=== PATIENT | female | born 1945 | race Asian ===

== ENCOUNTER 2018-07-04 22:41 | Inpatient (IN) | payer MEDICARE, MEDICAID ==
[~2018-07-04] VITALS: Ht 160 cm; Wt 65.8 kg
--- NOTE | 2018-07-04 23:00 | NUR ---
PT BIBPA C/O "NEEDS MED CLEARANCE BEFORE ADMIT TO [facility]". -SOB -N/V AOX4. PT ON MONITOR IN BED 10. WILL CONTINUE TO MONITOR.
--- NOTE | 2018-07-04 23:05 | NUR ---
PHLEB AT BEDSIDE FOR LAB DRAW
--- NOTE | 2018-07-04 23:15 | NUR ---
PT MOVED TO BED 12
[2018-07-04 23:20] LABS: BASOPHILS # (AUTO) 0.1 /CMM (0.0-0.2); BASOPHILS % (AUTO) 0.8 % (0.0-2.0); HEMATOCRIT 41 % (33-45); HEMOGLOBIN 13.9 g/dL (11.5-14.8); LYMPHOCYTES % (AUTO) 44.5 % (20.0-44.0); MEAN CORPUSCULAR HGB CONC 34 g/dl (31.0-36.0); MEAN CORPUSCULAR VOLUME 93 fL (82-100); MONOCYTES # (AUTO) 0.6 /CMM (0.1-1.30); MONOCYTES % (AUTO) 7.1 % (2.0-12.0); NEUTROPHILS # (AUTO) 4.2 /CMM (1.8-8.9); NEUTROPHILS % (AUTO) 46.6 % (43.0-81.0); PLATELET COUNT (AUTO) 438 /CMM (150-450); RED BLOOD CELL COUNT(AUTO) 4.43 MIL/uL (4.0-5.2); WHITE BLOOD COUNT (AUTO) 8.9 K/uL (4.3-11.0)
[2018-07-04 23:24] LABS: CALCIUM, SERUM 8.9 mg/dL (8.5-10.1); CARBON DIOXIDE 30 mmol/L (21-32); CHLORIDE 103 mmol/L (98-107); CREATININE 0.9 mg/dL (0.6-1.3); GLUCOSE 92 mg/dL (74-106); SODIUM SERUM 138 mmol/L (136-145); UREA NITROGEN, BLOOD 14 mg/dL (7-18)
[2018-07-04 23:30] LABS: ALANINE AMINOTRANSFERASE 26 U/L (12-78); ALBUMIN 3.7 g/dL (3.4-5.0); ALKALINE PHOSPHATASE 83 U/L (46-116); ASPARTATE AMINOTRANSFERASE 18 U/L (15-37); BILIRUBIN,DIRECT 0.1 mg/dL (0.0-0.2); BILIRUBIN,TOTAL 0.4 mg/dL (0.2-1.0); SALICYLATE 5.2 mg/dL (2.8-20.0); TOTAL PROTEIN, SERUM 7.3 g/dL (6.4-8.2)
[2018-07-04 23:33] LABS: ACETAMINOPHEN 0 ug/ml (10-30); ALCOHOL, BLOOD < 3 mg/dL (0-0)
--- NOTE | 2018-07-04 23:52 | NUR ---
BED ASSIGNMENT 211-1
--- NOTE | 2018-07-04 23:57 | NUR ---
REPORT GIVEN TO GREGORY AYALA FOR AMINAH
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
[2018-07-05] MEDS ORDERED: ACETAMINOPHEN 325 MG TABLET PO PRN (01:00)
[2018-07-05] MEDS ORDERED: MAG HYDROX/AL HYDROX/SIMETH 30 ML UDC PO PRN (01:00)
[2018-07-05] MEDS ORDERED: MAGNESIUM HYDROXIDE 30 ML UDC PO PRN (01:00)
[2018-07-05] MEDS ORDERED: ARIP10TA9 PO (05:15)
[2018-07-05] MEDS ORDERED: DIVA250T47 PO (05:15)
[2018-07-05] MEDS ORDERED: OLAN10TA3 PO (05:15)
[2018-07-05] MEDS ORDERED: IBUP-1953 PO (05:15)
[2018-07-05] MEDS ORDERED: DOCU100C36 PO (05:15)
[2018-07-05] MEDS ORDERED: OLANZAPINE ODT (05:15)
[2018-07-05] MEDS ORDERED: OLAN15TA3 PO (05:15)
[2018-07-05] MEDS ORDERED: AMOX500C2 PO (05:15)
[2018-07-05] MEDS ORDERED: ARIP300S3 IM (05:15)
--- NOTE | 2018-07-05 06:39 | NUR ---
MRSA SCREEN DONE IN ER
--- NOTE | 2018-07-05 06:39 | NUR ---
RELATIVE ALVERTO LI, WAS CALLED, NO ANSWER, MESSAGE LEFT VIA VOICE MAIL. RE: PATIENT'S ADMISSION TO GPS UNIT.
[2018-07-05] MEDS ORDERED: DOCU250C14 PO (08:21)
[2018-07-05] MEDS ORDERED: ARIP2TAB11 PO (08:21)
--- NOTE | 2018-07-05 10:53 | NUR ---
AYSHA contacted pts friend Heather [phone] who stated he lives with pt and wishes for her to return home. Heather stated he will pick pt up and transport home.
--- NOTE | 2018-07-05 11:10 | NUR ---
INITIAL DISCHARGE PLAN: Patient wishes to return home to [address] [facility] [address]. AYSHA will help form a safe and proper discharge in collaboration with friend Heather [phone] and .
[2018-07-05 16:00] VITALS: BP 151/64
[2018-07-05] MEDS: OLANZAPINE 5 MG/TAB.RAPDIS PO SCH (16:27)
[2018-07-05] MEDS ORDERED: IBUPROFEN 600 MG TABLET PO PRN (17:30)
[2018-07-05] MEDS ORDERED: DOCUSATE SODIUM 250 MG CAPSULE PO PRN (17:30)
--- NOTE | 2018-07-05 17:48 | NUR ---
GPS/RN-NOTES PATO DOVE SEEN THE PATIENT AND WILL RECONCILE PT'S. MEDICATIONS.
--- NOTE | 2018-07-05 19:30 | NUR ---
GPS RN NOTE, RECEIVED PATIENT AWAKE AND IN ROOM NO S/S OR COMPLAINTS OF PAIN AT THIS TIME. PATIENT IS DISPLAYING NO S/S OF APPARENT DISTRESS AT THIS TIME. PATIENT BREATHING IS UNLABORED WITH EQUAL RISE AND FALL OF THE CHEST. PATIENT IS ALERT AND ORIENTED X 1-2 ON ROOM AIR WITH A SPO2 OF 97%. PATIENT IS MED COMPLIANT, DISORGANIZED, DEPRESSED, COOPERATIVE, AND NEEDS REORIENTATION. PATIENT DENIES SUICIDE AND HOMICIDAL IDEATIONS AT THIS TIME. PATIENT ASSISTED WITH TURNING AND REPOSITIONING Q2HR AND PRN FOR COMFORT AND CIRCULATION. PATIENT HAS NO NEEDS AT THIS TIME. PATIENT EDUCATED ON THE USE OF THE CALL ARIAS. PATIENT BED SIDE RAILS ARE UP X 2 FOR SAFETY, BED IS LOCKED AND LOW. WILL CONTINUE TO MONITOR AND MAINTAIN SAFETY Q15 MIN WITH THE HELP OF STAFF.
[2018-07-05 20:00] VITALS: BP 137/90
[2018-07-05] MEDS: DIVALPROEX SODIUM 250 MG TABLET.DR PO SCH (21:25)
[2018-07-06] MEDS: ZOLPIDEM TARTRATE 5 MG TABLET PO PRN (01:05)
--- NOTE | 2018-07-06 01:05 | NUR ---
GPS RN NOTE, PATIENT HAS A COMPLAINT OF NOT BEING ABLE TO SLEEP AND IS REQUESTING AMBIEN AT THIS TIME. PATIENT VITAL SIGNS ARE STABLE. GAVE AMBIEN 5MG PO HS PRN ORDERED. WILL REASSESS FOR INSOMNIA AND I WILL CONTINUE TO MONITOR THIS PATIENT.
[2018-07-06] MEDS: DIVALPROEX SODIUM 250 MG TABLET.DR PO SCH ×2 (08:09→21:20)
[2018-07-06] MEDS: OLANZAPINE 5 MG/TAB.RAPDIS PO SCH ×2 (08:09→16:39)
--- NOTE | 2018-07-06 15:19 | NUR ---
SUPPORTIVE COUNSELING: SW SPOKE WITH PT REGARDING HER DISCHARGE AND COOPERATION WITH TREATMENT. PT IS CONFUSED AND DISORIENTED. PT WAS OBSERVED ATTEMPTING TO DEFECATE IN THE ACTIVITY ROOM.
--- NOTE | 2018-07-06 18:49 | NUR ---
RN NOTE: PATIENT REMAINS ALERT AWAKE ORIENTED. ON ROOM AIR, NO BREATHING DISTRESS NOTED. DENIES PAIN/DISCOMFORT. DENIES SI/HI. NO FALL/INJURY NOTED. SAFETY MEASURES OBSERVED. ENCOURAGE TO USE CALL LIGHT FOR ASSISTANCE. CONTINUE WITH PLAN OF CARE. NO NON-COMPLIANT BEHAVIOR NOTED, EASILY RE-ORIENTED.
[2018-07-06] MEDS: LORAZEPAM 0.5 MG TABLET PO PRN (23:07)
--- NOTE | 2018-07-07 06:00 | NUR ---
GPS RN NOTES : COLLECT URINE SPECIMEN, AND SEND OUT TO LAB.
[2018-07-07 06:27] LABS: BASOPHILS # (AUTO) 0.1 /CMM (0.0-0.2); BASOPHILS % (AUTO) 1.1 % (0.0-2.0); EOSINOPHILS % (AUTO) 1.2 % (0.0-6.0); HEMATOCRIT 41 % (33-45); HEMOGLOBIN 13.8 g/dL (11.5-14.8); LYMPHOCYTES # (AUTO) 3.2 /CMM (0.8-4.8); LYMPHOCYTES % (AUTO) 49.5 % (20.0-44.0); MEAN CORPUSCULAR HGB CONC 34 g/dl (31.0-36.0); MEAN CORPUSCULAR VOLUME 92 fL (82-100); MONOCYTES # (AUTO) 0.5 /CMM (0.1-1.30); MONOCYTES % (AUTO) 7.3 % (2.0-12.0); NEUTROPHILS # (AUTO) 2.7 /CMM (1.8-8.9); NEUTROPHILS % (AUTO) 40.9 % (43.0-81.0); PLATELET COUNT (AUTO) 448 /CMM (150-450); RED BLOOD CELL COUNT(AUTO) 4.45 MIL/uL (4.0-5.2); WHITE BLOOD COUNT (AUTO) 6.5 K/uL (4.3-11.0)
[2018-07-07 06:32] LABS: ALBUMIN 3.5 g/dL (3.4-5.0); BILIRUBIN,TOTAL 0.7 mg/dL (0.2-1.0); CREATININE 0.7 mg/dL (0.6-1.3); POTASSIUM 3.7 mmol/L (3.5-5.1); TOTAL PROTEIN, SERUM 7.4 g/dL (6.4-8.2)
[2018-07-07 06:46] LABS: APPEARANCE,URINE CLEAR (CLEAR); BILIRUBIN,URINE NEGATIVE (NEGATIVE); BLOOD, URINE TRACE Ery/uL (NEGATIVE); COLOR,URINE YELLOW (YELLOW); KETONES,URINE NEGATIVE (NEGATIVE); LEUKOCYTE ESTERASE ,URINE NEGATIVE (NEGATIVE); NITRITE, URINE NEGATIVE (NEGATIVE); PROTEIN,URINE NEGATIVE (NEGATIVE); UGLUCOSE NEGATIVE (NEGATIVE); UROBILINOGEN,URINE 0.2 EU/dL (0.2)
[2018-07-07 07:34] LABS: BACTERIA,URINE Rare /HPF (None Seen); SQUAMOUS EPITHELIAL CELL,UR Rare /HPF (None Seen); WBC,URINE 0-2 /HPF (0-3)
[2018-07-07 07:36] LABS: YEAST,URINE Rare /HPF (None Seen)
[2018-07-07 07:37] LABS: RBC,URINE 0-3 /HPF (0-2)
[2018-07-07 08:00] VITALS: BP 131/92
[2018-07-07] MEDS: OLANZAPINE 5 MG/TAB.RAPDIS PO SCH ×3 (09:00→17:00)
[2018-07-07] MEDS: DIVALPROEX SODIUM 250 MG TABLET.DR PO SCH ×3 (09:00→20:47)
--- NOTE | 2018-07-07 09:44 | NUR ---
GPS/RN PT REFUSED TO TAKE MEDICATION FROM THE SUPERINTENDENT GREENS OF THE NOTE AND FROM AMRIK JENKINS WELL. OFFERED X3.
[2018-07-07 16:00] VITALS: BP 119/76
[2018-07-07 20:00] VITALS: BP 144/90
[2018-07-07] MEDS: LORAZEPAM 0.5 MG TABLET PO PRN (21:06)
[2018-07-08 08:00] VITALS: BP 116/59
[2018-07-08] MEDS: DIVALPROEX SODIUM 250 MG TABLET.DR PO SCH ×2 (08:29→20:38)
[2018-07-08] MEDS: OLANZAPINE 5 MG/TAB.RAPDIS PO SCH ×2 (08:29→16:33)
[2018-07-08 16:00] VITALS: BP 134/99
[2018-07-08 20:00] VITALS: BP 110/74
[2018-07-09 08:00] VITALS: BP 145/70
[2018-07-09] MEDS: OLANZAPINE 5 MG/TAB.RAPDIS PO SCH ×2 (08:52→17:11)
[2018-07-09] MEDS: DIVALPROEX SODIUM 250 MG TABLET.DR PO SCH ×3 (08:52→17:11)
--- NOTE | 2018-07-09 16:14 | NUR ---
AYSHA received a call from pts friend Heather [phone] asking when pt will be discharged. SW explained that psychiatrist has not given order yet as pt is not stable. SW informed him that she would call him once psychiatrist gives DC order. Friend understood.
[2018-07-09 16:26] VITALS: BP 147/84
[2018-07-09 19:50] VITALS: BP 127/67
[2018-07-09 20:00] VITALS: BP 127/67
[2018-07-09] MEDS: ZOLPIDEM TARTRATE 5 MG TABLET PO PRN (20:56)
--- NOTE | 2018-07-09 20:56 | NUR ---
rn gps notes patient requesting for sleep aide. ambien offered patient states "YES SLEEP MEDICINE" prn ambien given will continue to monitor for effectiveness.
[2018-07-10 08:00] VITALS: BP 131/77
[2018-07-10] MEDS: OLANZAPINE 5 MG/TAB.RAPDIS PO SCH ×2 (08:53→16:45)
[2018-07-10] MEDS: DIVALPROEX SODIUM 250 MG TABLET.DR PO SCH ×3 (08:54→16:45)
[2018-07-10 16:00] VITALS: BP 134/68
[2018-07-10 19:26] LABS: APPEARANCE,URINE CLEAR (CLEAR); BILIRUBIN,URINE NEGATIVE (NEGATIVE); BLOOD, URINE TRACE-INTA Ery/uL (NEGATIVE); COLOR,URINE YELLOW (YELLOW); KETONES,URINE NEGATIVE (NEGATIVE); LEUKOCYTE ESTERASE ,URINE NEGATIVE (NEGATIVE); NITRITE, URINE NEGATIVE (NEGATIVE); PROTEIN,URINE NEGATIVE (NEGATIVE); UGLUCOSE NEGATIVE (NEGATIVE); UROBILINOGEN,URINE 0.2 EU/dL (0.2)
[2018-07-10 19:31] LABS: BACTERIA,URINE Few /HPF (None Seen); SQUAMOUS EPITHELIAL CELL,UR Few /HPF (None Seen); YEAST,URINE Few /HPF (None Seen)
[2018-07-10 20:07] VITALS: BP 135/87
--- NOTE | 2018-07-10 22:13 | NUR ---
ms/rn notes Patient medicated with Restoril 1 tab as ordered, for insomnia. Will continue plan of care. All safety precautions rendered. Addendum: 07/11/18 at 0115 by JACKIE FERNANDEZ RN PATIENT MEDIATED WITH AMBIEN 1 TAB ORDERED, FOR INSOMNIA. WILL CONTINUE PLAN OF CARE
[2018-07-11] MEDS: ZOLPIDEM TARTRATE 5 MG TABLET PO PRN (00:35)
[2018-07-11 08:00] VITALS: BP 144/69
[2018-07-11] MEDS: DIVALPROEX SODIUM 250 MG TABLET.DR PO SCH ×3 (08:52→18:02)
[2018-07-11] MEDS: OLANZAPINE 5 MG/TAB.RAPDIS PO SCH ×2 (08:53→18:01)
[2018-07-11] MEDS ORDERED: POLYVINYL ALCOHOL 15 ML BOTTLE EACHEYE PRN (09:00)
[2018-07-11 16:00] VITALS: BP 138/76
--- NOTE | 2018-07-11 19:26 | NUR ---
GPS/RN OPENING NOTES RECEIVED PATIENT IN BED, AWAKE, ABLE TO VERBALIZED NEEDS, ASSISTED AND REQUESTED TO CALL SON, WILL MONITOR FOR ANY CHANGES, RESPIRATIONS EVEN AND UNLABORED, COOPERATIVE TO CARE, WILL MONITOR.RECEIVED REPORT FROM AM RN FOR AMINAH IS A [place] SPEAKING.
[2018-07-11 19:56] VITALS: BP 145/83
[2018-07-11 20:29] VITALS: BP 145/83
[2018-07-12 08:00] VITALS: BP 125/75
[2018-07-12] MEDS: DIVALPROEX SODIUM 250 MG TABLET.DR PO SCH ×3 (08:03→16:32)
[2018-07-12] MEDS: OLANZAPINE 5 MG/TAB.RAPDIS PO SCH ×2 (08:04→16:32)
[2018-07-12 16:00] VITALS: BP 134/74
[2018-07-12 20:00] VITALS: BP 140/77
[2018-07-13 08:00] VITALS: BP 154/89
[2018-07-13] MEDS: DIVALPROEX SODIUM 250 MG TABLET.DR PO SCH ×3 (08:41→16:52)
[2018-07-13] MEDS: OLANZAPINE 5 MG/TAB.RAPDIS PO SCH ×2 (08:42→16:52)
[2018-07-13 16:13] VITALS: BP 139/80
[2018-07-13 20:00] VITALS: BP 111/63
[2018-07-13] MEDS: ZOLPIDEM TARTRATE 5 MG TABLET PO PRN (20:57)
[2018-07-14 08:00] VITALS: BP 135/75
[2018-07-14] MEDS: OLANZAPINE 5 MG/TAB.RAPDIS PO SCH ×2 (08:19→17:00)
[2018-07-14] MEDS: DIVALPROEX SODIUM 250 MG TABLET.DR PO SCH ×3 (08:19→17:00)
[2018-07-14 16:00] VITALS: BP 106/62
[2018-07-14 20:00] VITALS: BP 145/78
[2018-07-15 08:00] VITALS: BP 147/77
[2018-07-15] MEDS: DIVALPROEX SODIUM 250 MG TABLET.DR PO SCH ×3 (08:22→16:54)
[2018-07-15] MEDS: OLANZAPINE 5 MG/TAB.RAPDIS PO SCH ×2 (08:22→16:54)
[2018-07-15 16:11] VITALS: BP 140/79
[2018-07-15 19:45] VITALS: BP 145/86
[2018-07-15] MEDS: LORAZEPAM 0.5 MG TABLET PO PRN (20:50)
[2018-07-16 08:00] VITALS: BP 108/56
[2018-07-16] MEDS: DIVALPROEX SODIUM 250 MG TABLET.DR PO SCH (08:21)
[2018-07-16] MEDS: OLANZAPINE 5 MG/TAB.RAPDIS PO SCH (08:21)
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
--- NOTE | 2018-07-16 11:22 | NUR ---
DISCHARGE NOTE: Pt was discharged at 11:00am home [facility] [address] [facility] [address]. Pts friend Heather [phone] picked up pt and transported pt home. Pts mood was euthymic and affect was congruent. Pt denied suicidal/homicidal ideation and denied auditory/visual hallucinations. Pt was referred to Dr. Alanis at [address] [address] and will present on July 17, 2018 before 5:00pm for an intake. Pt was also referred to [facility] Address: [address] [place] [address] Phone: [phone]. The multidisciplinary exitcare form was done, printed, signed, and given to the patient.
[2018-07-20] MEDS ORDERED: OLANZAPINE 5 MG/TAB.RAPDIS PO SCH (10:00)
[2018-07-20] MEDS ORDERED: DIVALPROEX SODIUM 125 MG CAP.SPRINK PO SCH (13:00)
== END 2018-07-16 11:05 | disposition home or self-care (01) | DRG 885 ==
LOC: ER 22:47 → GPS 07-05 00:15
PROVIDERS: ADMIT Psychiatry & Neurology Psychiatry; ATTEND Nurse Practitioner Acute Care
DX: F29 Unspecified psychosis not due to a substance or known physiological condition (principal); F41.9 Anxiety disorder, unspecified; E78.5 Hyperlipidemia, unspecified; F31.9 Bipolar disorder, unspecified; F25.9 Schizoaffective disorder, unspecified; F03.90 Unspecified dementia, unspecified severity, without behavioral disturbance, psychotic disturbance, mood disturbance, and anxiety
CPT/HCPCS: 36415; 80048-TC; 80053-TC; 80061-TC; 80076-TC; 80164-TC; 81000-TC; 85025-TC; 87081-TC; G0480

== ENCOUNTER 2018-07-19 15:57 | Inpatient (IN) | payer MEDICARE, MEDICAID ==
[~2018-07-19] VITALS: Ht 152.4 cm; Wt 45.8 kg
[~2018-07-19 15:57] MED LIST: DOCU250C14 PO; IBUP-1953 PO
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
[2018-07-19] MEDS ORDERED: DIVA-78 PO (16:34)
[2018-07-19] MEDS ORDERED: ARIP300S IM (16:34)
[2018-07-19] MEDS ORDERED: OLAN5TAB3 PO ×2 (16:34→16:52)
[2018-07-19] MEDS ORDERED: ARIP2TAB3 PO (16:34)
--- NOTE | 2018-07-19 16:40 | NUR ---
DR VALENTINO AT BEDSIDE
--- NOTE | 2018-07-19 16:49 | NUR ---
URINE COLLECTED AND SEND TO LAB
[2018-07-19] MEDS ORDERED: DIVA250T4 PO (16:52)
[2018-07-19 16:54] LABS: BASOPHILS # (AUTO) 0.1 /CMM (0.0-0.2); HEMATOCRIT 37 % (33-45); HEMOGLOBIN 12.6 g/dL (11.5-14.8); LYMPHOCYTES % (AUTO) 35.9 % (20.0-44.0); MEAN CORPUSCULAR HGB CONC 34 g/dl (31.0-36.0); MEAN CORPUSCULAR VOLUME 92 fL (82-100); MONOCYTES # (AUTO) 0.7 /CMM (0.1-1.30); MONOCYTES % (AUTO) 8.4 % (2.0-12.0); NEUTROPHILS # (AUTO) 4.4 /CMM (1.8-8.9); NEUTROPHILS % (AUTO) 53.7 % (43.0-81.0); PLATELET COUNT (AUTO) 348 /CMM (150-450); RED BLOOD CELL COUNT(AUTO) 4.03 MIL/uL (4.0-5.2); WHITE BLOOD COUNT (AUTO) 8.2 K/uL (4.3-11.0)
[2018-07-19 17:00] LABS: APPEARANCE,URINE Clear (CLEAR); BILIRUBIN,URINE Negative (NEGATIVE); BLOOD, URINE Trace-lysed Ery/uL (NEGATIVE); COLOR,URINE Yellow (YELLOW); KETONES,URINE Negative (NEGATIVE); LEUKOCYTE ESTERASE ,URINE Trace (NEGATIVE); NITRITE, URINE Negative (NEGATIVE); PROTEIN,URINE Negative (NEGATIVE); UGLUCOSE Negative (NEGATIVE); UROBILINOGEN,URINE 0.2 EU/dL (0.2)
[2018-07-19 17:06] LABS: CALCIUM, SERUM 8.5 mg/dL (8.5-10.1); CARBON DIOXIDE 27 mmol/L (21-32); CHLORIDE 105 mmol/L (98-107); CREATININE 0.8 mg/dL (0.6-1.3); GLUCOSE 128 mg/dL (74-106); POTASSIUM 4.1 mmol/L (3.5-5.1); SODIUM SERUM 142 mmol/L (136-145); UREA NITROGEN, BLOOD 15 mg/dL (7-18)
[2018-07-19 17:09] LABS: ALANINE AMINOTRANSFERASE 18 U/L (12-78); ALBUMIN 3.4 g/dL (3.4-5.0); ALKALINE PHOSPHATASE 78 U/L (46-116); ASPARTATE AMINOTRANSFERASE 18 U/L (15-37); BILIRUBIN,DIRECT 0.1 mg/dL (0.0-0.2); BILIRUBIN,TOTAL 0.2 mg/dL (0.2-1.0); SALICYLATE 3.8 mg/dL (2.8-20.0); TOTAL PROTEIN, SERUM 7.1 g/dL (6.4-8.2)
[2018-07-19 17:10] LABS: ACETAMINOPHEN < 2 ug/ml (10-30); ALCOHOL, BLOOD < 3 mg/dL (0-0)
[2018-07-19 17:15] LABS: BACTERIA,URINE Few /HPF (None Seen); SQUAMOUS EPITHELIAL CELL,UR Few /HPF (None Seen)
--- NOTE | 2018-07-19 17:59 | NUR ---
REPORT GIVEN TO JOLANTA JENKINS. PT AWAITING TRANSFER TO FLOOR.
--- NOTE | 2018-07-19 18:25 | NUR ---
PATIENT TRANSFERRED TO [facility] 212-2 VIA [facility]. PATIENT IN STABLE CONDITION. BREATHING EVEN AND UNLABORED. NO ACUTE DISTRESS. NO CHANGES IN LOC NOTED. BELONGINGS BROUGHT WITH PATIENT.
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
[2018-07-19 20:00] VITALS: BP 129/50
[2018-07-19] MEDS ORDERED: ACETAMINOPHEN 325 MG TABLET PO PRN (20:30)
[2018-07-19] MEDS ORDERED: ZOLPIDEM TARTRATE 5 MG TABLET PO PRN (20:30)
[2018-07-19] MEDS ORDERED: MAG HYDROX/AL HYDROX/SIMETH 30 ML UDC PO PRN (20:30)
[2018-07-19] MEDS ORDERED: MAGNESIUM HYDROXIDE 30 ML UDC PO PRN (20:30)
[2018-07-19 21:53] VITALS: BP 129/50
[2018-07-20 06:05] LABS: BASOPHILS # (AUTO) 0.1 /CMM (0.0-0.2); BASOPHILS % (AUTO) 0.8 % (0.0-2.0); EOSINOPHILS % (AUTO) 1.2 % (0.0-6.0); HEMATOCRIT 38 % (33-45); HEMOGLOBIN 12.8 g/dL (11.5-14.8); LYMPHOCYTES # (AUTO) 3.5 /CMM (0.8-4.8); LYMPHOCYTES % (AUTO) 41.6 % (20.0-44.0); MEAN CORPUSCULAR HGB CONC 34 g/dl (31.0-36.0); MEAN CORPUSCULAR VOLUME 92 fL (82-100); MONOCYTES # (AUTO) 0.6 /CMM (0.1-1.30); MONOCYTES % (AUTO) 7.7 % (2.0-12.0); NEUTROPHILS # (AUTO) 4.1 /CMM (1.8-8.9); NEUTROPHILS % (AUTO) 48.7 % (43.0-81.0); PLATELET COUNT (AUTO) 359 /CMM (150-450); RED BLOOD CELL COUNT(AUTO) 4.11 MIL/uL (4.0-5.2); WHITE BLOOD COUNT (AUTO) 8.4 K/uL (4.3-11.0)
[2018-07-20 06:15] LABS: BILIRUBIN,TOTAL 0.3 mg/dL (0.2-1.0); TOTAL PROTEIN, SERUM 6.8 g/dL (6.4-8.2)
[2018-07-20 06:17] LABS: CHOLESTEROL 221 mg/dL (<200); HDL CHOLESTEROL 54 mg/dL (40-60); LDL 137 mg/dL (0-99); TRIGLYCERIDES 197 mg/dL (30-150)
--- NOTE | 2018-07-20 06:26 | NUR ---
GPS RN NOTE: Patient UA noted with urine WBC of 3-5, nitrite - negative, bacteria - few, v/s wnl, no fever, left message to Dr. Ya. Will continue to endorse and follow up with rounding doctor.
[2018-07-20 06:47] LABS: CALCIUM, SERUM 8.5 mg/dL (8.5-10.1); CREATININE 0.7 mg/dL (0.6-1.3); POTASSIUM 3.8 mmol/L (3.5-5.1)
[2018-07-20 06:53] LABS: ALBUMIN 3.3 g/dL (3.4-5.0)
[2018-07-20 08:00] VITALS: BP 115/65
--- NOTE | 2018-07-20 10:49 | NUR ---
AYSHA contacted pts friend Heather [phone] and informed him pt will be discharged to a custodial once stable for discharge. Heather agreed.
--- NOTE | 2018-07-20 10:51 | NUR ---
Psychosocial Note: I, Nida Pineda MAILS SUPERVISOR, attest to the patients previous psychosocial information dated 07/05/18 Update On Events leading to Admission and Discharge Plan: Pt has returned to the hospital within 3 days of her previous discharge date on 07/16/18. The current plan is to increase the patient on her medications and discharge her to a locked Intermediate Facility. The pt appears confused, disoriented, and disorganized with labile mood and flat affect. Pt is ambulatory, well-groomed and appropriately dressed. Pt is currently denying visual or auditory hallucinations. SW will work with the pt and the MD regarding appropriate discharge planning. SW will form a safe and proper discharge.
[2018-07-20] MEDS: DIVALPROEX SODIUM 125 MG CAP.SPRINK PO SCH ×2 (12:18→17:23)
[2018-07-20] MEDS: OLANZAPINE 5 MG/TAB.RAPDIS PO SCH ×2 (12:20→21:55)
[2018-07-20 16:00] VITALS: BP 136/63
--- NOTE | 2018-07-20 19:30 | NUR ---
GPS RN NOTE, RECEIVED PATIENT AWAKE AND IN ROOM NO S/S OR COMPLAINTS OF PAIN AT THIS TIME. PATIENT IS DISPLAYING NO S/S OF APPARENT DISTRESS AT THIS TIME. PATIENT BREATHING IS UNLABORED WITH EQUAL RISE AND FALL OF THE CHEST. PATIENT IS TURKISH SPEAKING BUT UNDERSTANDS SOME MAORI. PATIENT IS ALERT AND ORIENTED X 1-2 ON ROOM AIR WITH A SPO2 OF 97%. PATIENT IS MED COMPLIANT, DISORGANIZED, ANXIOUS, COOPERATIVE, AND NEEDS REORIENTATION. PATIENT DENIES SUICIDE AND HOMICIDAL IDEATIONS AT THIS TIME. PATIENT ASSISTED WITH TURNING AND REPOSITIONING Q2HR AND PRN FOR COMFORT AND CIRCULATION. PATIENT HAS NO NEEDS AT THIS TIME. PATIENT EDUCATED ON THE USE OF THE CALL ARIAS. PATIENT BED SIDE RAILS ARE UP X 2 FOR SAFETY, BED IS LOCKED AND LOW. WILL CONTINUE TO MONITOR AND MAINTAIN SAFETY Q15 MIN WITH THE HELP OF STAFF.
[2018-07-20 20:00] VITALS: BP 120/66
[2018-07-21 08:00] VITALS: BP 129/75
[2018-07-21] MEDS: OLANZAPINE 5 MG/TAB.RAPDIS PO SCH ×2 (08:04→21:18)
[2018-07-21] MEDS: DIVALPROEX SODIUM 125 MG CAP.SPRINK PO SCH ×3 (08:04→17:48)
[2018-07-21 16:00] VITALS: BP 139/78
[2018-07-21 20:43] VITALS: BP 146/71
[2018-07-21] MEDS: LORAZEPAM 0.5 MG TABLET PO PRN (23:01)
[2018-07-22 08:00] VITALS: BP 118/68
[2018-07-22] MEDS: DIVALPROEX SODIUM 125 MG CAP.SPRINK PO SCH ×3 (09:00→17:33)
[2018-07-22] MEDS: OLANZAPINE 5 MG/TAB.RAPDIS PO SCH ×2 (09:00→21:31)
[2018-07-22 16:00] VITALS: BP 149/81
[2018-07-22 19:40] VITALS: BP 146/84
[2018-07-22] MEDS: LORAZEPAM 0.5 MG TABLET PO PRN (20:27)
[2018-07-23 08:00] VITALS: BP 140/84
[2018-07-23] MEDS: DIVALPROEX SODIUM 125 MG CAP.SPRINK PO SCH ×3 (08:55→16:36)
[2018-07-23] MEDS: OLANZAPINE 5 MG/TAB.RAPDIS PO SCH ×2 (08:56→21:38)
[2018-07-23 17:04] VITALS: BP 154/95
[2018-07-23 20:18] VITALS: BP 124/82
--- NOTE | 2018-07-23 21:20 | NUR ---
GPS/RN PATIENT REFUSED ZYPREXA AT THIS TIME. WILL TRY AGAIN LATER.
--- NOTE | 2018-07-23 21:39 | NUR ---
GPS/RN OFFERED AGAIN HER MED, PATIENT TOOK IT.
[2018-07-24 08:00] VITALS: BP 103/52
[2018-07-24] MEDS: DIVALPROEX SODIUM 125 MG CAP.SPRINK PO SCH ×4 (08:44→21:15)
[2018-07-24] MEDS: OLANZAPINE 5 MG/TAB.RAPDIS PO SCH ×2 (08:44→21:15)
--- NOTE | 2018-07-24 10:24 | NUR ---
AYSHA faxed SNF referral to Fabi, communication center coordinator at [facility] Address: [address] [facility], [place] [address] for review.
--- NOTE | 2018-07-24 12:00 | NUR ---
AYSHA received a call from Fabi, director of recruitment and admissions at [facility] Address: [address] [facility], [place] [address] stating pt has been accepted to the facility. AYSHA informed her pt will be discharged on Monday07/27/18.
--- NOTE | 2018-07-24 14:54 | NUR ---
SUPPORTIVE COUNSELING: SW discussed pts discharge plan and medication compliance. Pt stated she wanted to leave SW informed her she will be discharging on Monday07/27/18 pt agreed. Pt appeared anxious with congruent affect and was cooperative and redirectable. Pts symptoms of christopher seem to be decreasing with medication, Pt is compliant with her medications.
[2018-07-24 16:00] VITALS: BP 113/78
[2018-07-24 19:59] VITALS: BP 129/78
[2018-07-24 20:00] VITALS: BP 129/78
--- NOTE | 2018-07-25 | NUR ---
RECYCLING OPERATIONS MANAGER NOTES SLEEPING COMFORTABLY IN BED , BREATHING EVEN AND NON-LABORED . KEPT HER WARM AND COMFORTABLE AT ALL TIMES. BED ALARM SET FOR SAFETY.
[2018-07-25 08:25] VITALS: BP 157/75
[2018-07-25] MEDS: DIVALPROEX SODIUM 125 MG CAP.SPRINK PO SCH ×4 (08:41→20:41)
[2018-07-25] MEDS: OLANZAPINE 5 MG/TAB.RAPDIS PO SCH ×2 (08:41→20:41)
[2018-07-25 16:00] VITALS: BP 145/79
--- NOTE | 2018-07-25 16:06 | NUR ---
GROUP NOTE: Pt is observed responding to internal stimuli pt stays in her room most of the day and talks to self. SW prompted pt to attend group therapy and pt shook her head no.
[2018-07-25 19:40] VITALS: BP 157/80
[2018-07-26 08:00] VITALS: BP 119/62
[2018-07-26] MEDS: OLANZAPINE 5 MG/TAB.RAPDIS PO SCH ×2 (08:25→21:36)
[2018-07-26] MEDS: DIVALPROEX SODIUM 125 MG CAP.SPRINK PO SCH ×4 (08:26→21:36)
[2018-07-26 16:00] VITALS: BP 147/92
[2018-07-26 20:00] VITALS: BP 157/85
[2018-07-27 08:00] VITALS: BP 102/59
[2018-07-27] MEDS: OLANZAPINE 5 MG/TAB.RAPDIS PO SCH (08:29)
[2018-07-27] MEDS: DIVALPROEX SODIUM 125 MG CAP.SPRINK PO SCH (08:30)
--- NOTE | 2018-07-27 09:25 | NUR ---
DR. WELLER GAVE AN ORDER TO D/C HOLD AND D/C TO [facility], TO CONTINUE BIBIANA E MEDS INCLUDING PRN AND TO FOLLOW UP WITH PSYCH AND MEDICAL DOCTORS.
--- NOTE | 2018-07-27 12:07 | NUR ---
DISCHARGE NOTE: Pt was discharged at 12:00pm via [facility] ambulance transportation to [facility] [address] [facility] [address] . Pts Friend Heather [phone] has been notified and agreed with discharge plan. Pts mood was euthymic with congruent affect. Pt denied visual/auditory hallucinations and denied suicidal/homicidal ideation. Pt will be under the care of Psychiatrist: Dr. Venegas [address] [address] [phone] and Fur Sewer: Dr. Juventino Carlos Address: [address] [place] [address] [address], [place] [address] . The multidisciplinary exitcare form was done, printed, signed, and given to the patient.
--- NOTE | 2018-07-27 12:25 | NUR ---
GPS SAMPLE DRILLER NOTE: PT DISCHARGE TO [facility] [address] [facility] [address] [phone]. PT IN STABLE CONDITION , NO S/S DISTRESS NOTED. PT COMPLIANT WITH MEDICATIONS AND TX ,PT DENIES SI/HI AMBULATORY , SELF CARE. EXIT CARE DONE PRINTED, SIGN ANG GIVEN TO PT. ALL BELONGINGS AND VALUABLES RETURNED TO PATIENT, REPORT GIVEN TO CHRIS JENIKNS IN THE FACILITY.
== END 2018-07-27 12:05 | DRG 885 ==
LOC: ER 15:59 → GPS 18:29
PROVIDERS: ADMIT Psychiatry & Neurology Psychiatry; ATTEND Nurse Practitioner Acute Care
DX: F29 Unspecified psychosis not due to a substance or known physiological condition (principal); E44.1 Mild protein-calorie malnutrition; F25.9 Schizoaffective disorder, unspecified; F39 Unspecified mood [affective] disorder; E78.5 Hyperlipidemia, unspecified; R73.9 Hyperglycemia, unspecified; F03.90 Unspecified dementia, unspecified severity, without behavioral disturbance, psychotic disturbance, mood disturbance, and anxiety; E77.8 Other disorders of glycoprotein metabolism
CPT/HCPCS: 36415; 80048-TC; 80053-TC; 80061-TC; 80076-TC; 80164-TC; 80305; 81000-TC; 85025-TC; 87081-TC; G0480

== ENCOUNTER 2018-12-22 16:51 | Inpatient (IN) | payer MEDICARE, MEDICAID ==
[~2018-12-22] VITALS: Ht 157.5 cm; Wt 45.4 kg
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
--- NOTE | 2018-12-22 17:32 | NUR ---
PT SEEN AND EXAMINED BY .
--- NOTE | 2018-12-22 17:47 | NUR ---
ER PHLEB AT BEDSIDE FOR BLOOD DRAW.
[2018-12-22 17:56] LABS: BASOPHILS # (AUTO) 0.1 /CMM (0.0-0.2); BASOPHILS % (AUTO) 1.3 % (0.0-2.0); EOSINOPHILS % (AUTO) 0.4 % (0.0-6.0); HEMATOCRIT 38 % (33-45); LYMPHOCYTES # (AUTO) 2.1 /CMM (0.8-4.8); LYMPHOCYTES % (AUTO) 34.4 % (20.0-44.0); MEAN CORPUSCULAR HGB CONC 34 g/dl (31.0-36.0); MEAN CORPUSCULAR VOLUME 90 fL (82-100); MONOCYTES # (AUTO) 0.6 /CMM (0.1-1.30); MONOCYTES % (AUTO) 9.7 % (2.0-12.0); NEUTROPHILS # (AUTO) 3.3 /CMM (1.8-8.9); NEUTROPHILS % (AUTO) 54.2 % (43.0-81.0); PLATELET COUNT (AUTO) 430 /CMM (150-450); RED BLOOD CELL COUNT(AUTO) 4.22 MIL/uL (4.0-5.2); WHITE BLOOD COUNT (AUTO) 6.1 K/uL (4.3-11.0)
[2018-12-22 18:09] LABS: CALCIUM, SERUM 8.8 mg/dL (8.5-10.1); CARBON DIOXIDE 24 mmol/L (21-32); CHLORIDE 103 mmol/L (98-107); CREATININE 0.8 mg/dL (0.6-1.3); GLUCOSE 118 mg/dL (74-106); POTASSIUM 3.4 mmol/L (3.5-5.1); SODIUM SERUM 137 mmol/L (136-145); UREA NITROGEN, BLOOD 7 mg/dL (7-18)
[2018-12-22] MEDS ORDERED: ARIP300S IM (18:14)
[2018-12-22] MEDS ORDERED: TEMA15CA PO (18:14)
[2018-12-22] MEDS ORDERED: DIVA500T54 PO (18:14)
[2018-12-22] MEDS ORDERED: OLAN15TA3 PO (18:14)
[2018-12-22 18:22] LABS: ALANINE AMINOTRANSFERASE 15 U/L (12-78); ALBUMIN 3.4 g/dL (3.4-5.0); ALCOHOL, BLOOD < 3 mg/dL (0-0); ALKALINE PHOSPHATASE 91 U/L (46-116); ASPARTATE AMINOTRANSFERASE 16 U/L (15-37); BILIRUBIN,DIRECT 0.1 mg/dL (0.0-0.2); BILIRUBIN,TOTAL 0.3 mg/dL (0.2-1.0); SALICYLATE 5.3 mg/dL (2.8-20.0); TOTAL PROTEIN, SERUM 7.1 g/dL (6.4-8.2)
--- NOTE | 2018-12-22 18:36 | NUR ---
URINE SPECIMEN COLLECTED AND SENT TO LAB.
[2018-12-22 18:46] LABS: APPEARANCE,URINE Clear (CLEAR); BILIRUBIN,URINE Negative (NEGATIVE); BLOOD, URINE Trace-intact Ery/uL (NEGATIVE); COLOR,URINE Yellow (YELLOW); KETONES,URINE Negative (NEGATIVE); LEUKOCYTE ESTERASE ,URINE Negative (NEGATIVE); NITRITE, URINE Negative (NEGATIVE); PH,URINE 6.5 (5.0-8.0); PROTEIN,URINE Negative (NEGATIVE); UGLUCOSE Negative (NEGATIVE); UROBILINOGEN,URINE 0.2 EU/dL (0.2)
[2018-12-22 18:55] LABS: BACTERIA,URINE None seen /HPF (None Seen); RBC,URINE 0-2 /HPF (0-2); WBC,URINE 0-2 /HPF (0-3)
[2018-12-22 18:56] LABS: MUCUS,URINE Few /LPF (None Seen); SQUAMOUS EPITHELIAL CELL,UR Few /HPF (None Seen)
--- NOTE | 2018-12-22 19:11 | NUR ---
GPS 218-B Addendum: 12/22/18 at 1920 by CLIFTONIAN 218-A
--- NOTE | 2018-12-22 19:23 | NUR ---
REPORT GIVEN TO GREGORY AYALA FOR AMINAH.
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
[2018-12-22 20:05] VITALS: BP 155/88
[2018-12-22] MEDS ORDERED: MAG HYDROX/AL HYDROX/SIMETH 30 ML UDC PO PRN (20:30)
[2018-12-22] MEDS ORDERED: MAGNESIUM HYDROXIDE 30 ML UDC PO PRN (20:30)
[2018-12-22] MEDS ORDERED: ACETAMINOPHEN 325 MG TABLET PO PRN (20:30)
[2018-12-22] MEDS ORDERED: BLOOD SUGAR DIAGNOSTIC 1 EACH STRIP IN ONE (22:00)
--- NOTE | 2018-12-22 22:02 | NUR ---
ACCUCHECK X1 = 112 MG/DL.
[2018-12-23] MEDS: TEMAZEPAM 7.5 MG CAPSULE PO PRN (01:43)
--- NOTE | 2018-12-23 01:44 | NUR ---
AWAKE, CALAM AND QUIET, OFFERED SLEEPING PILL, TEMAZEPAM 7.5 MG CAP PO GIVEN.
[2018-12-23 08:00] VITALS: BP 115/88
[2018-12-23] MEDS: DIVALPROEX SODIUM 500 MG TABLET.DR PO SCH ×2 (12:42→21:23)
--- NOTE | 2018-12-23 13:25 | NUR ---
RN NOTE: PATIENT'S UPPER AND LOWER DENTURES NOT FOUND. ASKED TSU DE IF PATIENT HAD DENTURES ON AND SHE STATED THAT THE PATIENT HAD NO DENTURES FROM THE BEGINNING OF THE SHIFT IN THE MORNING.
[2018-12-23 15:59] VITALS: BP 154/83
[2018-12-23] MEDS: OLANZAPINE 10 MG TABLET PO SCH (16:27)
[2018-12-23 19:47] VITALS: BP 144/91
[2018-12-24] MEDS: LORAZEPAM 0.5 MG TABLET PO PRN ×2 (03:42→21:56)
[2018-12-24 06:46] LABS: BASOPHILS # (AUTO) 0.1 /CMM (0.0-0.2); BASOPHILS % (AUTO) 0.8 % (0.0-2.0); EOSINOPHILS % (AUTO) 0.8 % (0.0-6.0); HEMATOCRIT 38 % (33-45); LYMPHOCYTES # (AUTO) 3.3 /CMM (0.8-4.8); LYMPHOCYTES % (AUTO) 39.4 % (20.0-44.0); MEAN CORPUSCULAR HGB CONC 34 g/dl (31.0-36.0); MEAN CORPUSCULAR VOLUME 90 fL (82-100); MONOCYTES # (AUTO) 0.5 /CMM (0.1-1.30); MONOCYTES % (AUTO) 6.6 % (2.0-12.0); NEUTROPHILS # (AUTO) 4.3 /CMM (1.8-8.9); NEUTROPHILS % (AUTO) 52.4 % (43.0-81.0); PLATELET COUNT (AUTO) 442 /CMM (150-450); RED BLOOD CELL COUNT(AUTO) 4.25 MIL/uL (4.0-5.2); WHITE BLOOD COUNT (AUTO) 8.3 K/uL (4.3-11.0)
[2018-12-24 07:15] LABS: CALCIUM, SERUM 8.8 mg/dL (8.5-10.1); CREATININE 0.7 mg/dL (0.6-1.3)
--- NOTE | 2018-12-24 07:24 | NUR ---
RN NOTES: DURING SHIFT PT. BEHAVIOUR WAS VERY UNCOOPERTIVE, DISORGNIZED, PT. THROWING LINENEN AND EYE GLASSES IN THE TRASH , REDIRECT THE PATIENT AND ORIENT TO THE UNIT.
[2018-12-24 08:00] VITALS: BP 140/87
[2018-12-24] MEDS: DIVALPROEX SODIUM 500 MG TABLET.DR PO SCH ×2 (08:53→21:18)
[2018-12-24] MEDS: OLANZAPINE 10 MG TABLET PO SCH ×2 (08:53→17:12)
--- NOTE | 2018-12-24 11:20 | NUR ---
AYSHA contacted pts cousin Heather Alves [phone] who stated that pt needs placement as he cannot continue to care for her at home due to her aggressive behavior and her non-compliance with medications. Per Heather pt has been living with him for the past 7 years and is unable to manage her behavior at home. Heather mentioned that pt has a Son but he lives in a different state and is not involved with captain/airline pilot care.
--- NOTE | 2018-12-24 15:00 | NUR ---
INITIAL DISCHARGE PLAN: Per james Romero [phone] pt needs SNF placement as he is unable to care for pt due to her aggressive behavior. SW will help form a safe and proper discharge on collaboration with .
[2018-12-24 16:00] VITALS: BP 108/72
[2018-12-24 20:13] VITALS: BP 123/79
--- NOTE | 2018-12-24 22:03 | NUR ---
RN NOTES: PT. C/O ANXIETY PACING IN HALLWAY TALKING TO SELF ,NOT RESTLESS , REMOVING ALL CLOTHING PUTING IN TRASH FOLLOWING NOT ANY REDIRECTIONS, ATIVAN 0.5 MG PO PRN GIVEN,
[2018-12-25] MEDS: TEMAZEPAM 7.5 MG CAPSULE PO PRN ×2 (01:21→21:26)
[2018-12-25 08:00] VITALS: BP 128/76
[2018-12-25] MEDS: OLANZAPINE 10 MG TABLET PO SCH ×2 (08:23→16:49)
[2018-12-25] MEDS: DIVALPROEX SODIUM 500 MG TABLET.DR PO SCH ×2 (08:23→21:25)
--- NOTE | 2018-12-25 15:59 | NUR ---
Group Note: SW encouraged pt to participate in group on 12/25/18 at 2pm discussing "discharge planning." Pt is unable to participate due to language barrier and responding to auditory hallucinations. Pt unable to follow directions and be in a group setting.
[2018-12-25 16:00] VITALS: BP 138/88
[2018-12-25 20:27] VITALS: BP 143/89
[2018-12-26 08:00] VITALS: BP 145/97
[2018-12-26] MEDS: DIVALPROEX SODIUM 500 MG TABLET.DR PO SCH ×2 (08:12→20:26)
[2018-12-26] MEDS: OLANZAPINE 10 MG TABLET PO SCH ×2 (08:12→16:49)
--- NOTE | 2018-12-26 15:39 | NUR ---
GROUP NOTE: SW encouraged pt to participate in group on this present day discussing "discharge planning." pt unable to participate due to language barrier and responding to auditory hallucinations. Pt unable to follow directions and be in a group setting.
[2018-12-26 16:00] VITALS: BP 155/70
[2018-12-26] MEDS: TEMAZEPAM 7.5 MG CAPSULE PO PRN ×2 (20:26→23:15)
[2018-12-26 20:39] VITALS: BP 156/86
[2018-12-27] MEDS: TEMAZEPAM 7.5 MG CAPSULE PO PRN (02:54)
[2018-12-27 08:00] VITALS: BP 120/98
[2018-12-27] MEDS: DIVALPROEX SODIUM 500 MG TABLET.DR PO SCH ×2 (09:49→16:41)
[2018-12-27] MEDS: OLANZAPINE 10 MG TABLET PO SCH ×2 (09:49→16:38)
--- NOTE | 2018-12-27 10:44 | NUR ---
SNF REFERRAL: AYSHA faxed SNF referral to Fabi data coordinator at [facility] Address: [address] [facility], [place] [address] for review.
[2018-12-27 16:00] VITALS: BP 147/93
[2018-12-27 20:16] VITALS: BP 119/79
[2018-12-28 08:00] VITALS: BP 148/89
[2018-12-28] MEDS: DIVALPROEX SODIUM 500 MG TABLET.DR PO SCH ×2 (08:13→20:00)
[2018-12-28] MEDS: OLANZAPINE 10 MG TABLET PO SCH ×2 (08:13→16:34)
--- NOTE | 2018-12-28 08:31 | NUR ---
SW received a call from Fabi, claims coordinator at [facility] Address: [address] [facility], [place] [address] stating pt has been accepted to the facility.
--- NOTE | 2018-12-28 15:00 | NUR ---
RN NOTES PT CURRENTLY SITTING ON FLOOR IN COMMON AREA/HALLWAY. PT SAFELY LOWERED HERSELF TO FLOOR, PLACED ADMISSION PAPERWORK Addendum: 12/28/18 at 1625 by TSERING RIGGS (CONT) ON FLOOR TO READ. WHEN ASKED WHY SHE WAS ON THE FLOOR PT STATED "I LIKE READING HERE". PT WAS INSTRUCTED TO CONTINUE TO REVIEW HER PAPERS IN HER ROOM, WAS DIRECTED BACK TO BED BY STAFF. WILL CONT TO MONITOR.
[2018-12-28 16:07] VITALS: BP 147/85
--- NOTE | 2018-12-28 19:30 | NUR ---
SITTING IN BED, AWAKE, ALERT, INITIATED INTERACTION, SHE WAVED HER HAND WITH A SMILE ON HER FACE. NO APPARENT DISTRESS NOTED, CALM, COOPERATIVE. BED ALARM ON, BED ON LOWEST POSITION, SAFETY PRECAUTION OBSERVED. WILL CONTINUE TO MONITOR Q 15 MINS. FOR SAFETY AND BEHAVIOR.
[2018-12-28 20:14] VITALS: BP 140/75
[2018-12-29 08:00] VITALS: BP 116/63
[2018-12-29] MEDS: DIVALPROEX SODIUM 500 MG TABLET.DR PO SCH ×2 (08:27→20:43)
[2018-12-29] MEDS: OLANZAPINE 10 MG TABLET PO SCH ×2 (08:28→16:55)
[2018-12-29 16:00] VITALS: BP 112/68
--- NOTE | 2018-12-29 20:01 | NUR ---
SHE IS LYING IN BED, QUIET, COMFORTABLE, PLEASANTLY CONFUSED, COOPERATIVE. INTERACTS WHEN ENGAGED. FALL PRECAUTION MAINTAINED. BED LOCKED AND ON LOWEST POSITION, BED ALARM ON. SAFETY PRECAUTION OBSERVED. ENVIRONMENTAL SAFETY CHECK DONE. WILL CONTINUE TO MONITOR Q 15 MINS. FOR SAFETY, HOURLY ROUNDING DONE.
[2018-12-29 20:06] VITALS: BP 119/46
[2018-12-30] MEDS: OLANZAPINE 10 MG TABLET PO SCH ×2 (07:52→16:54)
[2018-12-30] MEDS: DIVALPROEX SODIUM 500 MG TABLET.DR PO SCH ×2 (07:52→20:16)
[2018-12-30 08:00] VITALS: BP 148/83
[2018-12-30 16:00] VITALS: BP 152/93
--- NOTE | 2018-12-30 19:10 | NUR ---
AWAKE, ALERT, PLEASANTLY CONFUSED, INTERACTS WHEN ENGAGED. AMBULATORY/STEADY GAIT. COOPERATIVE, MED COMPLIANT. SAFETY PRECAUTION IN PLACE, BED ALARM ON, BED LOCKED AND ON LOWEST POSITION. ENVIRONMENTAL SAFETY CHECK DONE,. WILL CONTINUE TO MONITOR Q 15 MINS. FOR SAFETY AND BEHAVIOR.
[2018-12-30 20:35] VITALS: BP 143/52
[2018-12-31 08:00] VITALS: BP 146/97
[2018-12-31] MEDS: DIVALPROEX SODIUM 500 MG TABLET.DR PO SCH (08:33)
[2018-12-31] MEDS: OLANZAPINE 10 MG TABLET PO SCH ×2 (08:33→16:34)
[2018-12-31] MEDS: DIVALPROEX SODIUM 250 MG TABLET.DR PO SCH ×2 (12:55→16:34)
[2018-12-31] MEDS ORDERED: DIVALPROEX SODIUM 500 MG TABLET.DR PO SCH (13:00)
--- NOTE | 2018-12-31 15:48 | NUR ---
GROUP NOTE: SW encouraged pt to participate in group therapy on this present day discussing "discharge planning." Pt is unable to participate in group therapy due to pts cognitive impairment and history of Dementia.
[2018-12-31 16:42] VITALS: BP 140/79
[2018-12-31 21:21] VITALS: BP 139/76
[2019-01-01 08:00] VITALS: BP 126/80
[2019-01-01] MEDS: DIVALPROEX SODIUM 250 MG TABLET.DR PO SCH ×2 (08:12→12:10)
[2019-01-01] MEDS: OLANZAPINE 10 MG TABLET PO SCH (08:15)
--- NOTE | 2019-01-01 10:02 | NUR ---
DISCHARGE NOTE: Pt will be discharged at 2:00pm via [facility] to [facility] ([facility] [address] [facility] [id number] . Pts Friend Heather [phone] has been notified and agrees to discharge plan. Pts mood is euthymic with congruent affect. Pt denied suicidal/homicidal ideation and pts is at baseline responding to auditory/visual hallucinations. Pt will be under the care of Psychiatrist: Dr. Venegas [address] [address] [phone] and Hospital Aide: Dr. Juventino Carlos Address: [address] [place] [id number] . The multidisciplinary exit care form was done, printed, signed, and given to the patient.
--- NOTE | 2019-01-01 11:57 | NUR ---
RN GPS NOTES PT REPORT GIVEN TO RIGOBERTO JENKINS OF [facility].
--- NOTE | 2019-01-01 14:40 | NUR ---
RN GPS NOTES DR. FERNANDEZ INFORMED THAT PT IS BEING DISCHARGED TO SNF. PT AWAKE, ALERT AND ORIENTED, BELONGINGS ACCOUNTED FOR, PICKED UP BY 2 AMBULANCE PERSONNEL, LEFT VIA GUERNEY IN STABLE CONDITION.
--- NOTE | 2019-01-01 14:42 | NUR ---
RN GPS NOTES PT AWAKE, ALERT AND ORIENTED, NO COMPLANT OF PAIN, NOT IN DISTRESS, LEFT WITH ALL BELONGINGS IN STABLE CONDITION, PICKED UP BY 2 AMBULANCE PERSONNEL.
== END 2019-01-01 14:45 | DRG 885 ==
LOC: ER 16:57 → GPS 19:23
PROVIDERS: ADMIT Psychiatry & Neurology Psychiatry; ATTEND Internal Medicine
DX: F25.0 Schizoaffective disorder, bipolar type (principal); F23 Brief psychotic disorder; E44.1 Mild protein-calorie malnutrition; Z68.1 Body mass index [BMI] 19.9 or less, adult; E87.6 Hypokalemia; E78.5 Hyperlipidemia, unspecified; Z79.899 Other long term (current) drug therapy; F39 Unspecified mood [affective] disorder
CPT/HCPCS: 36415; 80048-TC; 80061-TC; 80076-TC; 80164-TC; 80305; 81000-TC; 82962-TC; 85025-TC; 87081-TC; G0480

== ENCOUNTER 2020-06-16 23:50 | Inpatient (IN) | payer MEDICARE, OTHER ==
[~2020-06-16] VITALS: Ht 157.5 cm; Wt 47.6 kg
[~2020-06-16 23:50] MED LIST changes: +ARIP300S IM; +DIVA500T54 PO; -DOCU250C14 PO; -IBUP-1953 PO; +OLAN15TA3 PO; +TEMA15CA PO
--- NOTE | 2020-06-16 23:50 | NUR ---
YG FROM HOME FOR MEDICAL CLEARANCE. PT PLACED ON 5150 DTO FOR AGGRESSIVE BEHAVIOR TOWARDS CAREGIVER, PT ALERT, AWAKE, CALM AND COOPERATIVE, -SOB, NOT IN ANY DISTRESS. VSS. PENDING ER PROVIDER ZAK
[2020-06-17 00:15] LABS: BASOPHILS # (AUTO) 0.1 /CMM (0.0-0.2); BASOPHILS % (AUTO) 1.2 % (0.0-2.0); EOSINOPHILS % (AUTO) 0.6 % (0.0-6.0); HEMATOCRIT 42 % (33-45); HEMOGLOBIN 13.9 g/dL (11.5-14.8); LYMPHOCYTES # (AUTO) 3.5 /CMM (0.8-4.8); LYMPHOCYTES % (AUTO) 36.3 % (20.0-44.0); MEAN CORPUSCULAR HGB CONC 33 g/dl (31.0-36.0); MEAN CORPUSCULAR VOLUME 89 fL (82-100); MONOCYTES # (AUTO) 0.8 /CMM (0.1-1.30); MONOCYTES % (AUTO) 8.5 % (2.0-12.0); NEUTROPHILS # (AUTO) 5.1 /CMM (1.8-8.9); NEUTROPHILS % (AUTO) 53.4 % (43.0-81.0); PLATELET COUNT (AUTO) 416 /CMM (150-450); RED BLOOD CELL COUNT(AUTO) 4.67 MIL/uL (4.0-5.2); WHITE BLOOD COUNT (AUTO) 9.6 K/uL (4.3-11.0)
[2020-06-17 00:40] LABS: BILIRUBIN,URINE NEGATIVE (NEGATIVE); COLOR,URINE YELLOW (YELLOW); LEUKOCYTE ESTERASE ,URINE NEGATIVE (NEGATIVE); NITRITE, URINE NEGATIVE (NEGATIVE); PROTEIN,URINE NEGATIVE (NEGATIVE); UGLUCOSE NEGATIVE (NEGATIVE); UROBILINOGEN,URINE 0.2 EU/dL (0.2)
[2020-06-17 00:42] LABS: CALCIUM, SERUM 9.1 mg/dL (8.5-10.1); CARBON DIOXIDE 24 mmol/L (21-32); CHLORIDE 102 mmol/L (98-107); CREATININE 0.9 mg/dL (0.6-1.3); GLUCOSE 158 mg/dL (74-106); POTASSIUM 3.4 mmol/L (3.5-5.1); SODIUM SERUM 137 mmol/L (136-145); UREA NITROGEN, BLOOD 12 mg/dL (7-18)
[2020-06-17 00:48] LABS: ALANINE AMINOTRANSFERASE 62 U/L (12-78); ALBUMIN 3.7 g/dL (3.4-5.0); ALCOHOL, BLOOD < 3 mg/dL (0-0); ALKALINE PHOSPHATASE 96 U/L (46-116); ASPARTATE AMINOTRANSFERASE 39 U/L (15-37); BILIRUBIN,DIRECT 0.1 mg/dL (0.0-0.2); BILIRUBIN,TOTAL 0.3 mg/dL (0.2-1.0); TOTAL PROTEIN, SERUM 8.1 g/dL (6.4-8.2)
[2020-06-17 00:56] LABS: ACETAMINOPHEN 0 ug/ml (10-30)
[2020-06-17 00:59] LABS: BACTERIA,URINE Few /HPF (None Seen); SQUAMOUS EPITHELIAL CELL,UR Few /HPF (None Seen); WBC,URINE 0-2 /HPF (0-3)
--- NOTE | 2020-06-17 02:12 | NUR ---
REPORT GIVEN TO SHANTANU JENKINS FAA. WILL TRANSPORT PT TO ROOM 219-A
[2020-06-17] MEDS ORDERED: BLOOD SUGAR DIAGNOSTIC 1 EACH STRIP IN ONE (03:00)
[2020-06-17] MEDS ORDERED: MAGNESIUM HYDROXIDE 30 ML UDC PO PRN (03:00)
[2020-06-17] MEDS ORDERED: MAG HYDROX/AL HYDROX/SIMETH 30 ML UDC PO PRN (03:00)
[2020-06-17] MEDS ORDERED: ACETAMINOPHEN 325 MG TABLET PO PRN (03:00)
[2020-06-17 04:35] VITALS: BP 145/105
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
--- NOTE | 2020-06-17 06:34 | NUR ---
GPS RN CLOSING NOTES: PATIENT AWAKE, A/O X1. AMBULATING IN HALLWAY. APPROPRIATE AFFECT. NO S/S OF DISTRESS. RESPIRATION EVEN AND UNLABORED WITH EQUAL RISE AND FALL OF THE CHEST ON ROOM AIR. OFFERED FLUID TOLERATED. ALL PATIENT CARE NEEDS HAVE BEEN MET ANTICIPATED. WILL CONTINUE TO MONITOR FOR SAFETY, MOOD AND BEHAVIOR AND ENDORSE TO AM SHIFT.
[2020-06-17] MEDS ORDERED: ATOR20TA PO (07:54)
[2020-06-17 08:00] VITALS: BP 132/91
[2020-06-17] MEDS ORDERED: LORAZEPAM 0.5 MG TABLET PO PRN (08:00)
--- NOTE | 2020-06-17 09:00 | NUR ---
RN NOTE- PT ALERT CONFUSED, PARANOID DISCUSSED UNIT RESOURCES DAILY ACTIVITY / DIFFICULT TO INTERACT / [place] SPEAKING THOUGH SEEMS TO UNDERSTAND SOME GREENLANDIC, PT DENIES SI HI AH VH
--- NOTE | 2020-06-17 14:00 | NUR ---
RN NOTE- K+ / 3.4 DR STEPHENSON NOTIFIED. NO NEW ORDERS.
[2020-06-17 16:00] VITALS: BP 145/70
[2020-06-17 21:02] VITALS: BP 121/85
[2020-06-17] MEDS: DIVALPROEX SODIUM 500 MG TABLET.DR PO SCH (21:32)
[2020-06-17] MEDS: OLANZAPINE 10 MG TABLET PO SCH (21:32)
--- NOTE | 2020-06-18 07:02 | NUR ---
GPS RN CLOSING NOTES: PATIENT AWAKE, A/O X1. PATIENT TRIED TO HIDE PM MEDS IN HER JACKET POCKET BUT FINALLY TOOK IT AND THEN BECAME UPSET AND TOLD THIS NURSE SHE DOES NOT WANT TO TAKE ANY MEDICATIONS AGAIN. NO S/S OF DISTRESS AT THIS TIME. RESPIRATION EVEN AND UNLABORED WITH EQUAL RISE AND FALL OF THE CHEST ON ROOM AIR. OFFERED FLUID TOLERATED. ALL PATIENT CARE NEEDS HAVE BEEN MET ANTICIPATED. WILL CONTINUE TO MONITOR FOR SAFETY, MOOD AND BEHAVIOR AND ENDORSE TO AM SHIFT.
[2020-06-18 08:00] VITALS: BP 129/85
[2020-06-18] MEDS: DIVALPROEX SODIUM 500 MG TABLET.DR PO SCH ×3 (08:33→21:14)
[2020-06-18 12:53] LABS: CREATININE 0.8 mg/dL (0.6-1.3)
--- NOTE | 2020-06-18 13:36 | NUR ---
Roommate Contact: SW called the pts roommate, Soren Alves ([phone]), and discussed the pts discharge back home. Pts roommate stated that she would not take her medications and that she has moments where she tries to hit him. Pts roommate stated that the last time she was hospitalized she was sent to [facility] and he would like her to return there for a while. SW stated that she will discuss this with the pts MD.
--- NOTE | 2020-06-18 15:31 | NUR ---
Initial Discharge Plan: Pt currently resides at her home located at [id number] [place] [address], Haylie Ritter, [place] [address]; ([phone]) with her cousin, Soren ([phone]). Per Soren, he would like the pt to return to [facility]. AYSHA will work with the pt and the MD regarding appropriate discharge planning. SW will form a safe and proper discharge.
[2020-06-18 16:00] VITALS: BP 128/78
--- NOTE | 2020-06-18 19:30 | NUR ---
GPS RN NOTE, RECEIVED PATIENT AWAKE AND IN BED, NO S/S OR COMPLAINTS OF PAIN AT THIS TIME. PATIENT IS DISPLAYING NO S/S OF APPARENT DISTRESS AT THIS TIME. PATIENT BREATHING IS UNLABORED WITH EQUAL RISE AND FALL OF THE CHEST. PATIENT IS ALERT AND ORIENTED X 1 - 2 ON ROOM AIR WITH A SPO2 96%. PATIENT IS VIETNAMESE SPEAKING BUT UNDERSTANDS SOME AMHARIC. PATIENT IS COMPLIANT WITH MEDICATIONS BUT HAS TRIED TO HIDE MEDICATION IN JACKET POCKET IN THE PAST. PATIENT IS ANXIOUS AT TIMES, DISORGANIZED, COOPERATIVE, AND NEEDS REDIRECTION. PATIENT DENIES SUICIDAL AND HOMICIDAL IDEATIONS AT THIS TIME. PATIENT ASSISTED WITH TURNING AND REPOSITIONING Q2HR AND PRN FOR COMFORT AND CIRCULATION. PATIENT HAS NO NEEDS AT THIS TIME. PATIENT EDUCATED ON THE USE OF THE CALL ARIAS. PATIENT BED SIDE RAILS UP X 2 FOR SAFETY. PATIENT BED IS LOCKED, LOW, WITH BED ALARM ON. WILL CONTINUE TO MONITOR THIS PATIENT Q15 MINUTES WITH THE HELP OF STAFF TO MAINTAIN SAFETY.
[2020-06-18 19:56] VITALS: BP 151/88
[2020-06-18] MEDS: SIMVASTATIN 10 MG TABLET PO SCH (21:14)
[2020-06-18] MEDS: OLANZAPINE 10 MG TABLET PO SCH (21:14)
--- NOTE | 2020-06-18 21:18 | NUR ---
GPS RN NOTE, PATIENT REFUSED DEPAKOTE DR 500 MG PO Q12HR. OFFERED THREE TIMES AND STILL PATIENT REFUSED STATING, " I DON'T TAKE DEPAKOTE ANYMORE I THINK IT'S BEEN 10 YEARS ". EDUCATED PATIENT ON THE RISKS AND BENEFITS OF TAKING AND REFUSING DEPAKOTE. WILL CONTINUE TO MONITOR THIS PATIENT WITH THE HELP OF STAFF.
[2020-06-19] MEDS: TEMAZEPAM 7.5 MG CAPSULE PO PRN (02:52)
--- NOTE | 2020-06-19 02:52 | NUR ---
GPS RN NOTE, PATIENT HAS A COMPLAINT OF NOT BEING ABLE TO SLEEP AND IS REQUESTING RESTORIL AT THIS TIME. PATIENT VITAL SIGNS ARE STABLE. GAVE RESTORIL 7.5MG PO HS PRN ORDERED. WILL REASSESS FOR INSOMNIA AND I WILL CONTINUE TO MONITOR THIS PATIENT.
[2020-06-19 08:00] VITALS: BP 154/85
[2020-06-19] MEDS: DIVALPROEX SODIUM 500 MG TABLET.DR PO SCH ×2 (08:26→21:16)
[2020-06-19 16:00] VITALS: BP 147/98
[2020-06-19 20:08] VITALS: BP 116/82
[2020-06-19 20:24] VITALS: BP 146/82
[2020-06-19] MEDS: SIMVASTATIN 10 MG TABLET PO SCH (21:16)
[2020-06-19] MEDS: OLANZAPINE 10 MG TABLET PO SCH (22:02)
--- NOTE | 2020-06-19 22:56 | NUR ---
GPS RN NOTE, RECEIVED PATIENT AWAKE AND IN BED, NO S/S OR COMPLAINTS OF PAIN AT THIS TIME. PATIENT IS DISPLAYING NO S/S OF APPARENT DISTRESS AT THIS TIME. PATIENT BREATHING IS UNLABORED WITH EQUAL RISE AND FALL OF THE CHEST. PATIENT IS ALERT AND ORIENTED X 1 - 2 ON ROOM AIR WITH A SPO2 99%. PATIENT IS SETSWANA SPEAKING BUT UNDERSTANDS SOME SINHALA. PATIENT IS SELECTIVE WITH MEDICATIONS AND HAS TRIED TO HIDE MEDICATION IN JACKET POCKET IN THE PAST. PATIENT IS ANXIOUS AT TIMES, DISORGANIZED, COOPERATIVE, AND NEEDS REDIRECTION. PATIENT DENIES SUICIDAL AND HOMICIDAL IDEATIONS AT THIS TIME. PATIENT ASSISTED WITH TURNING AND REPOSITIONING Q2HR AND PRN FOR COMFORT AND CIRCULATION. PATIENT HAS NO NEEDS AT THIS TIME. PATIENT EDUCATED ON THE USE OF THE CALL ARIAS. PATIENT BED SIDE RAILS UP X 2 FOR SAFETY. PATIENT BED IS LOCKED, LOW, WITH BED ALARM ON. WILL CONTINUE TO MONITOR THIS PATIENT Q15 MINUTES WITH THE HELP OF STAFF TO MAINTAIN SAFETY.
[2020-06-20 08:00] VITALS: BP 164/102
[2020-06-20] MEDS: DIVALPROEX SODIUM 500 MG TABLET.DR PO SCH ×2 (08:25→20:25)
--- NOTE | 2020-06-20 12:15 | NUR ---
Assumed Care: Received pt. awake in her room, pt. just had lunch, pleasant upon approached. No distress and no agitation noted. Will continue to monitor for safety.
[2020-06-20 16:00] VITALS: BP_SYST 129; BP_SYST 152; BP_DIAS 66; BP_DIAS 93
[2020-06-20 19:55] VITALS: BP 147/71
[2020-06-20 20:38] VITALS: BP 147/71
[2020-06-20] MEDS: OLANZAPINE 10 MG TABLET PO SCH (21:08)
[2020-06-20] MEDS: SIMVASTATIN 10 MG TABLET PO SCH (21:08)
[2020-06-21 08:00] VITALS: BP 141/89
[2020-06-21] MEDS: DIVALPROEX SODIUM 500 MG TABLET.DR PO SCH ×2 (08:19→21:30)
[2020-06-21 16:00] VITALS: BP 151/85
[2020-06-21 20:00] VITALS: BP 154/58
[2020-06-21] MEDS: OLANZAPINE 10 MG TABLET PO SCH (21:30)
[2020-06-21] MEDS: SIMVASTATIN 10 MG TABLET PO SCH (21:30)
--- NOTE | 2020-06-22 01:41 | NUR ---
RN note: patient refused skin assessment.
[2020-06-22 08:00] VITALS: BP 132/82
[2020-06-22] MEDS: DIVALPROEX SODIUM 500 MG TABLET.DR PO SCH ×2 (08:33→21:19)
--- NOTE | 2020-06-22 13:15 | NUR ---
SNF Referral: AYSHA faxed a referral to [facility] with attn to Fabi to the fax number: [phone].
--- NOTE | 2020-06-22 14:06 | NUR ---
SNF Contact: Fabi ([phone]) from [facility] contacted the SW and stated that the pt was accepted to their facility.
[2020-06-22 16:00] VITALS: BP 151/98
[2020-06-22 20:00] VITALS: BP 115/72
[2020-06-22] MEDS: SIMVASTATIN 10 MG TABLET PO SCH (21:19)
[2020-06-22] MEDS: OLANZAPINE 10 MG TABLET PO SCH (21:19)
--- NOTE | 2020-06-23 06:41 | NUR ---
GPS RN CLOSING NOTES: PATIENT LAYING ON BED AWAKE, A/O X1. NO BEHAVIOR ISSUES THIS SHIFT. NO S/S OF DISTRESS. DENIES ANY PAIN. RESPIRATION EVEN AND UNLABORED WITH EQUAL RISE AND FALL OF THE CHEST ON ROOM AIR. OFFERED FLUID TOLERATED. ALL PATIENT CARE NEEDS HAVE BEEN MET ANTICIPATED. WILL CONTINUE TO MONITOR FOR SAFETY, MOOD AND BEHAVIOR AND ENDORSE TO AM SHIFT.
[2020-06-23 08:00] VITALS: BP 138/69
[2020-06-23] MEDS: DIVALPROEX SODIUM 500 MG TABLET.DR PO SCH ×2 (08:47→21:04)
--- NOTE | 2020-06-23 12:17 | NUR ---
Probable Cause Hearing: Pts [phone] hold was upheld for grave disability.
[2020-06-23 16:00] VITALS: BP_SYST 126
--- NOTE | 2020-06-23 18:30 | NUR ---
no change in status.
[2020-06-23 20:00] VITALS: BP 120/71
[2020-06-23] MEDS: OLANZAPINE 10 MG TABLET PO SCH (21:04)
[2020-06-23] MEDS: SIMVASTATIN 10 MG TABLET PO SCH (21:04)
[2020-06-24 08:00] VITALS: BP 120/66
[2020-06-24] MEDS: DIVALPROEX SODIUM 500 MG TABLET.DR PO SCH ×2 (09:09→21:14)
[2020-06-24 16:00] VITALS: BP 158/79
--- NOTE | 2020-06-24 16:26 | NUR ---
MED COMPLIANT,NO ISSUES.
--- NOTE | 2020-06-24 19:30 | NUR ---
GPS RN NOTE, RECEIVED PATIENT AWAKE AND IN BED, NO S/S OR COMPLAINTS OF PAIN AT THIS TIME. PATIENT IS DISPLAYING NO S/S OF APPARENT DISTRESS AT THIS TIME. PATIENT BREATHING IS UNLABORED WITH EQUAL RISE AND FALL OF THE CHEST. PATIENT IS ALERT AND ORIENTED X 1 - 2 ON ROOM AIR WITH A SPO2 99%. PATIENT IS PERSIAN SPEAKING BUT UNDERSTANDS SOME TAJIK. PATIENT IS COMPLIANT WITH MEDICATIONS BUT HAS TRIED TO HIDE MEDICATION IN JACKET POCKET IN THE PAST. PATIENT IS ANXIOUS AT TIMES, DISORGANIZED, COOPERATIVE, AND NEEDS REDIRECTION. PATIENT DENIES SUICIDAL AND HOMICIDAL IDEATIONS AT THIS TIME. PATIENT ASSISTED WITH TURNING AND REPOSITIONING Q2HR AND PRN FOR COMFORT AND CIRCULATION. PATIENT HAS NO NEEDS AT THIS TIME. PATIENT EDUCATED ON THE USE OF THE CALL ARIAS. PATIENT BED SIDE RAILS UP X 2 FOR SAFETY. PATIENT BED IS LOCKED, LOW, WITH BED ALARM ON. WILL CONTINUE TO MONITOR THIS PATIENT Q15 MINUTES WITH THE HELP OF STAFF TO MAINTAIN SAFETY.
[2020-06-24 19:45] VITALS: BP 158/87
[2020-06-24] MEDS: OLANZAPINE 10 MG TABLET PO SCH (21:14)
[2020-06-24] MEDS: SIMVASTATIN 10 MG TABLET PO SCH (21:14)
[2020-06-25 08:00] VITALS: BP 109/59
[2020-06-25] MEDS: DIVALPROEX SODIUM 500 MG TABLET.DR PO SCH ×2 (09:36→21:12)
--- NOTE | 2020-06-25 15:25 | NUR ---
Roommate Contact: SW called the pts roommate, Soren Alves ([phone]), and provided him with an update regarding this pt. SW stated that the pt appears to be calm throughout the day and can be seen walking around the unit but mostly stays in her room. SW stated that the pt was accepted to [facility] and that is where she will be discharged once she is cleared.
[2020-06-25 16:00] VITALS: BP 143/85
[2020-06-25 19:47] VITALS: BP 158/80
[2020-06-25 19:51] VITALS: BP 158/80
[2020-06-25] MEDS: SIMVASTATIN 10 MG TABLET PO SCH (21:16)
[2020-06-25] MEDS: OLANZAPINE 10 MG TABLET PO SCH (21:59)
[2020-06-26 08:18] VITALS: BP 146/88
[2020-06-26] MEDS: DIVALPROEX SODIUM 500 MG TABLET.DR PO SCH ×2 (08:18→21:13)
[2020-06-26 16:00] VITALS: BP 160/85
[2020-06-26 20:05] VITALS: BP 155/93
[2020-06-26 20:10] VITALS: BP 155/93
[2020-06-26] MEDS: SIMVASTATIN 10 MG TABLET PO SCH (21:17)
[2020-06-26 21:45] VITALS: BP 139/86
[2020-06-26] MEDS: OLANZAPINE 10 MG TABLET PO SCH (22:17)
--- NOTE | 2020-06-27 04:15 | NUR ---
RN NOTE PATIENT IS SLEEPING COMFORTABLY. NO BEHAVIOR EPISODES NOTED. REDIRECTABLE. MED COMPLAINT.
[2020-06-27 08:00] VITALS: BP 133/90
[2020-06-27] MEDS: DIVALPROEX SODIUM 500 MG TABLET.DR PO SCH ×2 (08:22→20:43)
[2020-06-27 16:00] VITALS: BP 142/80
--- NOTE | 2020-06-27 19:01 | NUR ---
GPS/RN-NOTES PATIENT SITTING IN BED AWAKE,ALERT,NO ACUTE DISTRESS NOTED. WILL ENDORSE TO INCOMING NURSE FOR MONITORING AND CARE.
[2020-06-27 19:58] VITALS: BP 156/81
[2020-06-27 20:10] VITALS: BP 162/88
[2020-06-27] MEDS: SIMVASTATIN 10 MG TABLET PO SCH (21:00)
[2020-06-27] MEDS: OLANZAPINE 10 MG TABLET PO SCH (21:22)
[2020-06-27] MEDS: TEMAZEPAM 7.5 MG CAPSULE PO PRN (22:48)
--- NOTE | 2020-06-27 22:50 | NUR ---
RN NOTE: INSOMNIA PATIENT IS UNABLE TO SLEEP & WANTED TO TAKE SLEEPING MEDICINE, PRN RESTORIL 7.5 MG 1 CAP PO GIVEN. WILL CONTINUE TO MONITOR.
[2020-06-28 08:00] VITALS: BP 139/84
[2020-06-28] MEDS: DIVALPROEX SODIUM 500 MG TABLET.DR PO SCH ×2 (08:12→20:48)
[2020-06-28 16:00] VITALS: BP 135/84
[2020-06-28 20:32] VITALS: BP 146/87
[2020-06-28] MEDS: SIMVASTATIN 10 MG TABLET PO SCH (21:50)
[2020-06-28] MEDS: OLANZAPINE 10 MG TABLET PO SCH (21:50)
[2020-06-29 08:00] VITALS: BP 141/80
[2020-06-29] MEDS: DIVALPROEX SODIUM 500 MG TABLET.DR PO SCH (08:25)
--- NOTE | 2020-06-29 09:25 | NUR ---
Roommate Contact: AYSHA called the pts roommate, Soren Alves ([phone]), and informed him that the pt is going to be discharged to [facility] today. Pts roommate stated he was grateful for the pt being discharged to snf.
--- NOTE | 2020-06-29 13:04 | NUR ---
RN NOTE: REPORT GIVEN TO NABOR JENKINS AT [facility].
--- NOTE | 2020-06-29 13:31 | NUR ---
Discharge Note: Pt will be discharged to [facility] ([facility] [address] [facility] [address] . Pt will be transported via [facility] at 1pm. Pts roommate and cousin, Soren ([phone]), has been notified and agrees to discharge plan. Pts mood is euthymic with congruent affect. Pt denied suicidal/homicidal ideation and pts is at baseline responding to auditory/visual hallucinations. Pt will be under the care of psychiatrist, Dr. Horta, located at [address] [facility] [address], [place] [address] [phone] and productivity engineer, Dr. Carlos, located at [address] [facility] [address] [address] . The choice of vendor and the multidisciplinary exit care form was done, printed, signed, and given to the patient.
--- NOTE | 2020-06-29 15:18 | NUR ---
RN NOTE: EMS PRESENT TO TRANSFER PATIENT TO [facility]. PT'S HEART RATE 101-110. EMS REQUESTED NOTIFICATION TO [facility]. SPOKE WITH RIGOBERTO, CHIEF MATE. INFORMED PATIENT WILL NOT BE ACCEPTED WITH CURRENT HEART RATE. SPOKE WITH POLLO INSTRUMENT REPAIRER STEAM [employer]ANT AND NOTIFIED POLLO OF VS TRENDS. NO NEW ORDERS.
--- NOTE | 2020-06-29 15:33 | NUR ---
RN NOTE: ANXIETY PT MEDICATED WITH ATIVAN 0.5 MG PO PRN FOR ANXIETY. PT ANXIOUS REGARDING DISCHARGE. WILL MONITOR EFFECTIVENESS OF PRN.
[2020-06-29 16:44] VITALS: BP 146/97
--- NOTE | 2020-06-29 19:20 | NUR ---
GPS-RN DISCHARGED NOTES: PATIENT DISCHARGED TO [facility] IN STABLE CONDITION. A/OX 2-3. VERBALLY RESPONSIVE. V/S TAKEN, STABLE AND RECORDED. ALL BELONGINGS ACCOUNTED FOR AND SIGNED FORM. HEALTH TEACHINGS GIVEN TO PATIENT AND VERBALIZED UNDERSTANDING. EXIT FOLDER HANDED TO EMT'S. PT LEFT UNIT VIA GURNEY AT 1920 ACCOMPANIED BY 2 EMT'S. CHARGE NURSE AWARE OF DISCHARGE.
== END 2020-06-29 19:44 | DRG 885 ==
LOC: ER 23:53 → GPS 06-17 01:04
PROVIDERS: ADMIT Psychiatry & Neurology Psychiatry; ATTEND Student in an Organized Health Care Education/Training Program
DX: F25.9 Schizoaffective disorder, unspecified (principal); F01.50 Vascular dementia, unspecified severity, without behavioral disturbance, psychotic disturbance, mood disturbance, and anxiety; F29 Unspecified psychosis not due to a substance or known physiological condition; E78.5 Hyperlipidemia, unspecified; E87.6 Hypokalemia; F32.9 Major depressive disorder, single episode, unspecified; F41.9 Anxiety disorder, unspecified; R73.03 Prediabetes; Z20.822 Contact with and (suspected) exposure to COVID-19; R74.01 Elevation of levels of liver transaminase levels; M62.81 Muscle weakness (generalized); R94.6 Abnormal results of thyroid function studies; Z73.6 Limitation of activities due to disability
CPT/HCPCS: 36415; 80048-TC; 80061-TC; 80076-TC; 80164-TC; 81001; 82565-TC; 82962-TC; 84439-TC; 84443-TC; 85025-TC; 87081-TC; G0480

== ENCOUNTER 2021-06-04 17:29 | Inpatient (IN) | payer MEDICARE, OTHER ==
[~2021-06-04] VITALS: Ht 154.9 cm; Wt 56.7 kg
[~2021-06-04 17:29] MED LIST changes: -ARIP300S IM; +ATOR20TA PO
--- NOTE | 2021-06-04 17:29 | NUR ---
PT BIB PA HOME. ON 5150 HOLD. NEEDS MEDICAL CLEARANCE FOR GEROPSYCH ADMISSION. PT IS AAOX4, NOT IN RESPIRATORY DISTRESS, HOOKED TO V/S MONITOR, KEPT RESTED AND COMFORTABLE. WILL CONTINUE TO MONITOR.
--- NOTE | 2021-06-04 17:48 | NUR ---
URINE SPECIMEN COLLECTED AND SENT TO LAB.
--- NOTE | 2021-06-04 17:54 | NUR ---
SEEN AND EXAMINED BY .
[2021-06-04] MEDS ORDERED: CLON0.1T PO (18:05)
[2021-06-04] MEDS ORDERED: LISI-768 PO (18:05)
[2021-06-04] MEDS ORDERED: NETA2.5D3 OP (18:05)
[2021-06-04] MEDS ORDERED: DOCU-141 PO (18:05)
[2021-06-04 18:31] LABS: BILIRUBIN,URINE NEGATIVE (NEGATIVE); COLOR,URINE YELLOW (YELLOW); LEUKOCYTE ESTERASE ,URINE TRACE (NEGATIVE); NITRITE, URINE NEGATIVE (NEGATIVE); PROTEIN,URINE NEGATIVE (NEGATIVE); UGLUCOSE NEGATIVE (NEGATIVE); UROBILINOGEN,URINE 0.2 EU/dL (0.2)
[2021-06-04 18:44] LABS: BACTERIA,URINE None seen /HPF (None Seen); WBC,URINE 0-2 /HPF (0-3)
--- NOTE | 2021-06-04 18:54 | NUR ---
ROOM 218-A
--- NOTE | 2021-06-04 19:16 | NUR ---
COVID SPECIMEN COLLECTED AND SENT TO LAB.
[2021-06-04 19:35] LABS: CALCIUM, SERUM 8.9 mg/dL (8.5-10.1); CARBON DIOXIDE 25 mmol/L (21-32); CHLORIDE 104 mmol/L (98-107); GLUCOSE 135 mg/dL (74-106); POTASSIUM 3.3 mmol/L (3.5-5.1); SODIUM SERUM 138 mmol/L (136-145); UREA NITROGEN, BLOOD 7 mg/dL (7-18)
--- NOTE | 2021-06-04 19:38 | NUR ---
CALLED NICOLAS ORTIZ NP FOR ADMISSION
[2021-06-04 19:42] LABS: ACETAMINOPHEN < 0 ug/ml (10-30); ALCOHOL, BLOOD < 3 mg/dL (0-0)
[2021-06-04 19:46] LABS: CREATININE 0.8 mg/dL (0.6-1.3)
[2021-06-04 20:17] LABS: BASOPHILS # (AUTO) 0.1 K/uL (0.0-0.2); BASOPHILS % (AUTO) 0.6 % (0.0-2.0); EOSINOPHILS % (AUTO) 0.4 % (0.0-6.0); HEMATOCRIT 40 % (33-45); HEMOGLOBIN 13.4 g/dL (11.5-14.8); LYMPHOCYTES % (AUTO) 22.4 % (20.0-44.0); MEAN CORPUSCULAR HGB CONC 33 g/dl (31.0-36.0); MEAN CORPUSCULAR VOLUME 89 fL (82-100); MONOCYTES # (AUTO) 0.6 K/uL (0.1-1.30); MONOCYTES % (AUTO) 6.7 % (2.0-12.0); NEUTROPHILS # (AUTO) 6.2 K/uL (1.8-8.9); NEUTROPHILS % (AUTO) 69.9 % (43.0-81.0); PLATELET COUNT (AUTO) 377 K/uL (150-450); RED BLOOD CELL COUNT(AUTO) 4.51 MIL/uL (4.0-5.2); WHITE BLOOD COUNT (AUTO) 8.9 K/uL (4.3-11.0)
--- NOTE | 2021-06-04 21:05 | NUR ---
REPORT GIVEN TO GREGORY DORANTES FOR AMINAH
[2021-06-04] MEDS ORDERED: POTASSIUM CHLORIDE 20 MEQ TAB.PRT.SR PO ONE (21:30)
--- NOTE | 2021-06-04 21:44 | NUR ---
PT TRANSFERRED TO 218 VIA [facility] IN STABLE CONDITION.
--- NOTE | 2021-06-04 21:50 | NUR ---
GPS WATER PLANT MAINTENANCE MECHANIC NOTE RECEIVED PATIENT DIRECT ADMIT FROM ER. ACCORDING TO REPORT GIVEN TO ME BY GREGORY WANG, PATIENT IS FROM HOME WITH FAMILY. PATIENT ARRIVED ON THIS UNIT AT 2150 VIA STRETCHER WITH 2 REAL ESTATE LAWYER ESCORTS. PATIENT IS AMBULATORY WITH STEADY GAIT. APPEARED CALM AND WELL GROOMED. PER HOLD PATIENT BECAME EXTREMELY AGITATED AND RESPONDING TO INTERNAL STIMULI, YELLING IN HER UNKNOWN LANGUAGES. PATIENT COOPERATIVE AND RE-DIRECTABLE. THE 5150 WAS REVIEWED AND THE DOCUMENTATION IN THE 5150 HOLD APPEARS TO REFLECT THE PRESENTATION OF THE PATIENT. PATIENT WAS ADMITTED LAST JAN 2021 WELL. UPON FACE TO FACE ASSESSMENT PATIENT IS NOTED TO BEING HYPERVERBAL, ELATED, COOPERATIVE, WELL GROOMED AND NEEDING REDIRECTION. PATIENT IS CURRENTLY LYING IN BED AWAKE AND YELLING. HAS NO S/S OF APPARENT DISTRESS ON ROOM AIR, BREATHING UNLABORED WITH EQUAL RISE AND FALL OF THE CHEST. NO C/O PAIN. PATIENT IS A/OX1 TO NAME. PATIENT CONFUSED AND UNABLE TO ASSESS FOR SUICIDAL IDEATION. PICTURES TAKEN, SKIN IS INTACT WITH MINIMAL SCRATCHES FOUND ON HER BACK. PATIENT BELONGINGS WERE INVENTORIED AND CHECKED FOR CONTRABAND. SUPERVISING PHYSICIAN IS JOSEPH OWEN MD. SCHEDULED MEDICATIONS ADMINISTERED. PATIENT RE-DIRECTED. PATIENT BED SIDE RAILS ARE UP X2 FOR SAFETY, BED IN LOCKED AND IN LOWEST POSITION. WILL CONTINUE TO MONITOR PATIENT Q 15 MIN WITH THE HELP OF STAFF TO MAINTAIN SAFETY.
[2021-06-04] MEDS ORDERED: Medication Not On Formulary EA (Netarsudil Mesylat/Latanoprost (Rocklatan 0.02%-0.005% E OP SCH (22:00)
[2021-06-04] MEDS: DOCUSATE SODIUM 100 MG CAPSULE PO SCH (22:08)
[2021-06-04] MEDS: ATORVASTATIN 10 MG TABLET PO SCH (22:08)
[2021-06-04] MEDS: LORAZEPAM 0.5 MG TABLET PO PRN (22:16)
--- NOTE | 2021-06-04 22:18 | NUR ---
GPS RN NOTE PATIENT GIVEN ATIVAN 0.5 MG AT THIS TIME. PATIENT VERY HYPERVERBAL AND EXPERIENCING HALLUCINATIONS. VERY AGITATED. WILL MONITOR.
[2021-06-04] MEDS ORDERED: ZOLPIDEM TARTRATE 5 MG TABLET PO PRN (22:30)
[2021-06-04] MEDS ORDERED: BLOOD SUGAR DIAGNOSTIC 1 EACH STRIP IN ONE (22:30)
[2021-06-04] MEDS ORDERED: MAGNESIUM HYDROXIDE 30 ML UDC PO PRN (22:30)
[2021-06-04] MEDS ORDERED: MAG HYDROX/AL HYDROX/SIMETH 30 ML UDC PO PRN (22:30)
[2021-06-04] MEDS ORDERED: ACETAMINOPHEN 325 MG TABLET PO PRN (22:30)
--- NOTE | 2021-06-05 06:42 | NUR ---
GPS RN NOTE PHONE CALLED BROTHER GENE LI MADE KNOWN ABOUT SISTER'S ADMISSION IN THE UNIT.
[2021-06-05 08:00] VITALS: BP 146/84
[2021-06-05] MEDS: ENSURE ENLIVE CHOC 237 ML CAN PO SCH ×2 (09:08→16:57)
[2021-06-05] MEDS: LISINOPRIL (5MG) 5 MG TABLET PO SCH (09:08)
--- NOTE | 2021-06-05 11:52 | NUR ---
Service changed to Dr. Horta and left a message to Solis WHYTE of Dr. Horta. Addendum: 06/05/21 at 1155 by RUTH LIZ RN Kam Ely called and made aware of the care for the pt.
[2021-06-05] MEDS: LORAZEPAM 0.5 MG TABLET PO PRN (12:28)
[2021-06-05 16:00] VITALS: BP 109/70
[2021-06-05] MEDS: DIVALPROEX SODIUM 500 MG TABLET.DR PO SCH (17:38)
[2021-06-05 20:07] VITALS: BP 99/52
[2021-06-05] MEDS: OLANZAPINE 10 MG TABLET PO SCH (21:07)
[2021-06-05] MEDS: LATANOPROST EYE DROP 0.005% 2.5 ML BOTTLE EACHEYE SCH ×2 (21:07→21:22)
[2021-06-05] MEDS: ATORVASTATIN 10 MG TABLET PO SCH (21:07)
[2021-06-05] MEDS: DOCUSATE SODIUM 100 MG CAPSULE PO SCH ×2 (21:08→21:22)
--- NOTE | 2021-06-05 21:22 | NUR ---
ATTEMPTED TO GIVE PT LATANOPROST EYE DROPS AND DOCUSATE SODIUM AND PATIENT BECOME AGITATED AND COMBATIVE. BEGAN YELLING IN FOREIGN LANGUAGE. WILL CONTINUE TO MONITOR.
[2021-06-06 08:00] VITALS: BP 127/87
[2021-06-06] MEDS: ENSURE ENLIVE CHOC 237 ML CAN PO SCH ×2 (09:00→17:01)
[2021-06-06] MEDS: LISINOPRIL (5MG) 5 MG TABLET PO SCH (09:01)
[2021-06-06] MEDS: OLANZAPINE 10 MG TABLET PO SCH ×2 (09:01→21:06)
[2021-06-06] MEDS: DIVALPROEX SODIUM 500 MG TABLET.DR PO SCH ×3 (09:01→17:01)
[2021-06-06] MEDS: POTASSIUM CHLORIDE 20 MEQ TAB.PRT.SR PO ONE ×2 (10:00→13:17)
[2021-06-06 11:02] LABS: BASOPHILS # (AUTO) 0.1 K/uL (0.0-0.2); BASOPHILS % (AUTO) 0.8 % (0.0-2.0); EOSINOPHILS % (AUTO) 1.3 % (0.0-6.0); HEMATOCRIT 38 % (33-45); HEMOGLOBIN 12.6 g/dL (11.5-14.8); LYMPHOCYTES # (AUTO) 2.7 K/uL (0.8-4.8); LYMPHOCYTES % (AUTO) 42.7 % (20.0-44.0); MEAN CORPUSCULAR HGB CONC 33 g/dl (31.0-36.0); MEAN CORPUSCULAR VOLUME 90 fL (82-100); MONOCYTES # (AUTO) 0.5 K/uL (0.1-1.30); MONOCYTES % (AUTO) 7.2 % (2.0-12.0); NEUTROPHILS # (AUTO) 3.1 K/uL (1.8-8.9); PLATELET COUNT (AUTO) 351 K/uL (150-450); RED BLOOD CELL COUNT(AUTO) 4.23 MIL/uL (4.0-5.2); WHITE BLOOD COUNT (AUTO) 6.4 K/uL (4.3-11.0)
[2021-06-06 11:38] LABS: CALCIUM, SERUM 8.4 mg/dL (8.5-10.1); CARBON DIOXIDE 29 mmol/L (21-32); CHLORIDE 104 mmol/L (98-107); CREATININE 0.8 mg/dL (0.6-1.3); GLUCOSE 83 mg/dL (74-106); POTASSIUM 3.7 mmol/L (3.5-5.1); SODIUM SERUM 138 mmol/L (136-145); UREA NITROGEN, BLOOD 16 mg/dL (7-18)
[2021-06-06 11:46] LABS: CHOLESTEROL 194 mg/dL (<200); HDL CHOLESTEROL 64 mg/dL (40-60); LDL 108 mg/dL (0-99); TRIGLYCERIDES 116 mg/dL (30-150)
[2021-06-06] MEDS ORDERED: POTASSIUM CHLORIDE 20 MEQ TAB.PRT.SR PO ONE (13:17)
[2021-06-06 16:00] VITALS: BP 122/78
[2021-06-06 19:50] VITALS: BP 111/55
[2021-06-06 21:02] VITALS: BP 111/55
[2021-06-06] MEDS: ATORVASTATIN 10 MG TABLET PO SCH (21:30)
[2021-06-06] MEDS: DOCUSATE SODIUM 100 MG CAPSULE PO SCH (21:31)
[2021-06-06] MEDS: LATANOPROST EYE DROP 0.005% 2.5 ML BOTTLE EACHEYE SCH (22:00)
--- NOTE | 2021-06-06 22:06 | NUR ---
GPS RN NOTE: MEDICATION REFUSAL PATIENT REFUSED XALATAN EYE DROPS X 3, DESPITE OF RISKS AND BENEFITS EXPLANATIONS, PATIENT CONTINUED TO REFUSE.
[2021-06-07 08:00] VITALS: BP 117/60
[2021-06-07] MEDS: ENSURE ENLIVE CHOC 237 ML CAN PO SCH ×2 (08:38→17:23)
[2021-06-07] MEDS: DIVALPROEX SODIUM 500 MG TABLET.DR PO SCH ×3 (08:38→17:24)
[2021-06-07] MEDS: LISINOPRIL (5MG) 5 MG TABLET PO SCH (08:39)
[2021-06-07] MEDS: OLANZAPINE 10 MG TABLET PO SCH ×2 (08:39→21:29)
--- NOTE | 2021-06-07 13:08 | NUR ---
AYSHA Initial Discharge Plan: Patient currently resides at [facility] located [address] [place] [address]; ([phone]). AYSHA spoke with Richy kellogg from [facility] who stated pt is welcomed back upon dc. AYSHA will work with the MD, treatment team, and family to help coordinate appropriate dc.
--- NOTE | 2021-06-07 13:08 | NUR ---
AYSHA Admit Source: Patient placed on a hold due to pt's behavior being unpredictable at her nursing facility [facility]. Patient currently resides at [facility] located [address] [place] [address]; ([phone]). AYSHA spoke with Richy perezer from [facility] who stated pt is welcomed back upon dc.
--- NOTE | 2021-06-07 13:11 | NUR ---
AYSHA Family Contact: AYSHA contacted patient's brother Soren ([phone]) and notified of pt's admission. SW discussed treatment and discharge plan. Soren would want pt back to [facility] upon dc.
[2021-06-07 16:00] VITALS: BP 135/57
[2021-06-07 19:55] VITALS: BP 130/76
[2021-06-07 20:00] VITALS: BP 130/76
[2021-06-07] MEDS: LATANOPROST EYE DROP 0.005% 2.5 ML BOTTLE EACHEYE SCH (22:00)
[2021-06-07] MEDS: DOCUSATE SODIUM 100 MG CAPSULE PO SCH (22:11)
[2021-06-07] MEDS: ATORVASTATIN 10 MG TABLET PO SCH (22:11)
--- NOTE | 2021-06-07 22:12 | NUR ---
GPS RN NOTE: MEDICATION REFUSAL PATIENT REFUSED XALATAN EYE DROPS X 3, DESPITE OF RISKS AND BENEFITS EXPLANATIONS, PATIENT CONTINUED TO REFUSE.
[2021-06-08 08:00] VITALS: BP 148/89
[2021-06-08] MEDS: ENSURE ENLIVE CHOC 237 ML CAN PO SCH ×2 (08:00→17:14)
[2021-06-08] MEDS: DIVALPROEX SODIUM 500 MG TABLET.DR PO SCH ×4 (09:02→17:16)
[2021-06-08] MEDS: OLANZAPINE 10 MG TABLET PO SCH ×2 (09:02→21:17)
[2021-06-08] MEDS: LISINOPRIL (5MG) 5 MG TABLET PO SCH (09:02)
--- NOTE | 2021-06-08 13:41 | NUR ---
pt. refused 1pm depakote.non-saudi arabian speaking.
[2021-06-08 16:00] VITALS: BP 134/75
[2021-06-08 20:00] VITALS: BP 132/85
[2021-06-08] MEDS: LATANOPROST EYE DROP 0.005% 2.5 ML BOTTLE EACHEYE SCH (22:00)
[2021-06-08] MEDS: DOCUSATE SODIUM 100 MG CAPSULE PO SCH (22:09)
[2021-06-08] MEDS: ATORVASTATIN 10 MG TABLET PO SCH (22:09)
--- NOTE | 2021-06-08 22:10 | NUR ---
GPS RN NOTE: MEDICATION REFUSAL PATIENT REFUSED XALATAN EYE DROPS X 3, DESPITE OF RISKS AND BENEFITS EXPLANATIONS, PATIENT CONTINUED TO REFUSE.
[2021-06-09 08:00] VITALS: BP 129/66
[2021-06-09] MEDS: ENSURE ENLIVE CHOC 237 ML CAN PO SCH ×2 (08:29→17:23)
[2021-06-09] MEDS: OLANZAPINE 10 MG TABLET PO SCH ×2 (09:35→21:12)
[2021-06-09] MEDS: DIVALPROEX SODIUM 500 MG TABLET.DR PO SCH ×2 (09:35→21:12)
[2021-06-09] MEDS: LISINOPRIL (5MG) 5 MG TABLET PO SCH (09:36)
[2021-06-09 16:00] VITALS: BP 153/87
[2021-06-09 20:00] VITALS: BP 143/76
[2021-06-09] MEDS: DOCUSATE SODIUM 100 MG CAPSULE PO SCH (21:12)
[2021-06-09] MEDS: ATORVASTATIN 10 MG TABLET PO SCH (21:12)
[2021-06-09] MEDS: LATANOPROST EYE DROP 0.005% 2.5 ML BOTTLE EACHEYE SCH (22:15)
[2021-06-10 08:00] VITALS: BP 155/92
[2021-06-10] MEDS: OLANZAPINE 10 MG TABLET PO SCH ×2 (10:18→21:00)
[2021-06-10] MEDS: DIVALPROEX SODIUM 500 MG TABLET.DR PO SCH ×2 (10:18→21:00)
[2021-06-10] MEDS: ENSURE ENLIVE CHOC 237 ML CAN PO SCH ×2 (10:19→18:26)
[2021-06-10] MEDS: LISINOPRIL (5MG) 5 MG TABLET PO SCH (10:19)
--- NOTE | 2021-06-10 11:29 | NUR ---
Court Hearing: Patient's court hearing for 3270 was today and it was upheld for GD.
[2021-06-10 16:00] VITALS: BP 106/66
[2021-06-10 20:00] VITALS: BP 82/62
[2021-06-10] MEDS: LATANOPROST EYE DROP 0.005% 2.5 ML BOTTLE EACHEYE SCH (21:14)
[2021-06-10] MEDS: ATORVASTATIN 10 MG TABLET PO SCH (21:14)
[2021-06-10] MEDS: DOCUSATE SODIUM 100 MG CAPSULE PO SCH (21:14)
[2021-06-11 08:00] VITALS: BP 144/93
[2021-06-11] MEDS: ENSURE ENLIVE CHOC 237 ML CAN PO SCH ×2 (08:00→17:52)
[2021-06-11] MEDS: OLANZAPINE 10 MG TABLET PO SCH ×2 (08:01→21:09)
[2021-06-11] MEDS: LISINOPRIL (5MG) 5 MG TABLET PO SCH (08:01)
[2021-06-11] MEDS: DIVALPROEX SODIUM 500 MG TABLET.DR PO SCH ×2 (08:01→21:09)
--- NOTE | 2021-06-11 11:36 | NUR ---
AYSHA Individual Therapy: SW attempted to conduct therapy. Pt was uncooperative and was responding to internal stimuli. Pt unable to conduct therapy at this time.
[2021-06-11 16:07] VITALS: BP 113/65
--- NOTE | 2021-06-11 19:57 | NUR ---
RN NOTES: RECIEVED ASLEEP ON BED, MONITORED, FALL AND SAFETY PRECAUTION OBSERVED.
[2021-06-11 20:00] VITALS: BP 111/76
[2021-06-11 20:15] VITALS: BP 111/76
[2021-06-11] MEDS: ATORVASTATIN 10 MG TABLET PO SCH (21:09)
[2021-06-11] MEDS: LATANOPROST EYE DROP 0.005% 2.5 ML BOTTLE EACHEYE SCH (21:09)
[2021-06-11] MEDS: DOCUSATE SODIUM 100 MG CAPSULE PO SCH (21:16)
--- NOTE | 2021-06-11 21:16 | NUR ---
RN NOTES; MANUALLY SCAN BARCODE FOR COLJESU UNABLE TO SCAN DIRECTLY USING THE SCANNER ,CN NOTIFIED. Addendum: 06/11/21 at 2 by NGOC GALLEGOS RN ADDED NOTES: VERY COOPERATIVE TAKEN ALL HER ORAL MEDS, NO SIGN OF AGITATION.
[2021-06-12 08:00] VITALS: BP 148/87
[2021-06-12] MEDS: ENSURE ENLIVE CHOC 237 ML CAN PO SCH ×2 (08:28→16:27)
[2021-06-12] MEDS: OLANZAPINE 10 MG TABLET PO SCH ×2 (08:30→21:26)
[2021-06-12] MEDS: LISINOPRIL (5MG) 5 MG TABLET PO SCH (08:30)
[2021-06-12] MEDS: DIVALPROEX SODIUM 500 MG TABLET.DR PO SCH ×2 (08:30→21:27)
[2021-06-12 16:00] VITALS: BP 139/85
--- NOTE | 2021-06-12 19:30 | NUR ---
GPS RN NOTE, RECEIVED PATIENT AWAKE AND IN BED, NO S/S OR COMPLAINTS OF PAIN AT THIS TIME. PATIENT IS DISPLAYING NO S/S OF APPARENT DISTRESS AT THIS TIME. PATIENT BREATHING IS UNLABORED WITH EQUAL RISE AND FALL OF THE CHEST. PATIENT IS ALERT AND ORIENTED X 1-2 ON ROOM AIR WITH A SPO2 99%. PATIENT IS COMPLIANT WITH MEDICATIONS, PLEASANT, POLITE, CONFUSED AT TIMES, MAKES NEEDS KNOWN, AND COOPERATIVE. PATIENT DENIES SUICIDAL AND HOMICIDAL IDEATIONS AT THIS TIME. PATIENT ASSISTED WITH TURNING AND REPOSITIONING Q2HR AND PRN FOR COMFORT AND CIRCULATION. PATIENT HAS NO NEEDS AT THIS TIME. PATIENT EDUCATED ON THE USE OF THE CALL ARIAS. PATIENT BED SIDE RAILS UP X 2 FOR SAFETY. PATIENT BED IS LOCKED, LOW, WITH BED ALARM ON. WILL CONTINUE TO MONITOR THIS PATIENT Q15 MINUTES WITH THE HELP OF STAFF TO MAINTAIN SAFETY.
[2021-06-12 19:54] VITALS: BP 115/57
[2021-06-12] MEDS: DOCUSATE SODIUM 100 MG CAPSULE PO SCH (21:26)
[2021-06-12] MEDS: ATORVASTATIN 10 MG TABLET PO SCH (21:27)
[2021-06-12] MEDS: LATANOPROST EYE DROP 0.005% 2.5 ML BOTTLE EACHEYE SCH (21:27)
[2021-06-13 08:00] VITALS: BP 106/64
[2021-06-13] MEDS: LISINOPRIL (5MG) 5 MG TABLET PO SCH (08:44)
[2021-06-13] MEDS: ENSURE ENLIVE CHOC 237 ML CAN PO SCH ×2 (08:44→17:14)
[2021-06-13] MEDS: DIVALPROEX SODIUM 500 MG TABLET.DR PO SCH ×2 (08:45→21:20)
[2021-06-13] MEDS: OLANZAPINE 10 MG TABLET PO SCH ×2 (08:45→21:20)
[2021-06-13 16:00] VITALS: BP 122/58
[2021-06-13 20:00] VITALS: BP 149/90
[2021-06-13] MEDS: DOCUSATE SODIUM 100 MG CAPSULE PO SCH (21:19)
[2021-06-13] MEDS: LATANOPROST EYE DROP 0.005% 2.5 ML BOTTLE EACHEYE SCH (21:23)
[2021-06-13] MEDS: ATORVASTATIN 10 MG TABLET PO SCH (21:26)
[2021-06-14 08:00] VITALS: BP 138/80
[2021-06-14] MEDS: ENSURE ENLIVE CHOC 237 ML CAN PO SCH ×2 (08:32→16:06)
[2021-06-14] MEDS: DIVALPROEX SODIUM 500 MG TABLET.DR PO SCH ×2 (09:33→21:25)
[2021-06-14] MEDS: OLANZAPINE 10 MG TABLET PO SCH ×2 (09:33→21:27)
[2021-06-14] MEDS: LISINOPRIL (5MG) 5 MG TABLET PO SCH (09:34)
[2021-06-14 16:00] VITALS: BP 117/71
--- NOTE | 2021-06-14 16:00 | NUR ---
AYSHA Individual Therapy: SW met with patient at bedside for individual therapy regarding positive coping mechanisms. Pt. was sleeping and able to be aroused by verbal cues. Pt. stated she wanted to sleep and refused to participate it therapy. SW will continue attempts to engage pt. is therapy at a later time.
[2021-06-14 19:57] VITALS: BP 118/77
[2021-06-14] MEDS: DOCUSATE SODIUM 100 MG CAPSULE PO SCH (21:27)
[2021-06-14] MEDS: ATORVASTATIN 10 MG TABLET PO SCH (21:28)
[2021-06-14] MEDS: LATANOPROST EYE DROP 0.005% 2.5 ML BOTTLE EACHEYE SCH (21:35)
--- NOTE | 2021-06-14 21:36 | NUR ---
GPS RN NOTE: MEDICATION REFUSAL PATIENT REFUSED XALATAN EYE DROPS X 3, DESPITE OF RISKS AND BENEFITS EXPLANATIONS, PATIENT CONTINUED TO REFUSE.
[2021-06-15 08:00] VITALS: BP 138/84
[2021-06-15] MEDS: DIVALPROEX SODIUM 500 MG TABLET.DR PO SCH ×2 (09:30→21:18)
[2021-06-15] MEDS: LISINOPRIL (5MG) 5 MG TABLET PO SCH (09:30)
[2021-06-15] MEDS: ENSURE ENLIVE CHOC 237 ML CAN PO SCH ×2 (09:30→16:30)
[2021-06-15] MEDS: OLANZAPINE 10 MG TABLET PO SCH ×2 (09:30→21:18)
--- NOTE | 2021-06-15 15:23 | NUR ---
MOSTLY ISOLATIVE,KEEPS TO SELF.MED COMPLIANT.
[2021-06-15 16:00] VITALS: BP 113/63
[2021-06-15 20:10] VITALS: BP 122/77
[2021-06-15 20:33] VITALS: BP 122/77
[2021-06-15] MEDS: ATORVASTATIN 10 MG TABLET PO SCH (21:18)
[2021-06-15] MEDS: LATANOPROST EYE DROP 0.005% 2.5 ML BOTTLE EACHEYE SCH (22:00)
[2021-06-15] MEDS: DOCUSATE SODIUM 100 MG CAPSULE PO SCH (22:08)
--- NOTE | 2021-06-15 22:09 | NUR ---
GPS RN NOTE: MEDICATION REFUSAL PATIENT REFUSED XALATAN EYE DROPS X 3, DESPITE OF RISKS AND BENEFITS EXPLANATIONS, PATIENT KEPT COVERING HER EYES WITH HER BOTH HANDS AND CONTINUED TO REFUSE.
[2021-06-16 08:00] VITALS: BP 136/93
[2021-06-16] MEDS: ENSURE ENLIVE CHOC 237 ML CAN PO SCH ×2 (08:00→17:09)
--- NOTE | 2021-06-16 09:03 | NUR ---
AYSHA Family Contact: AYSHA contacted pt's brother Soren ([phone]) and notified of discharge for 06/18 to [facility] SN[facility]. He was agreeable.
[2021-06-16] MEDS: LISINOPRIL (5MG) 5 MG TABLET PO SCH (09:50)
[2021-06-16] MEDS: OLANZAPINE 10 MG TABLET PO SCH ×2 (09:50→22:15)
[2021-06-16] MEDS: DIVALPROEX SODIUM 500 MG TABLET.DR PO SCH ×2 (09:50→22:15)
[2021-06-16 16:00] VITALS: BP 112/74
[2021-06-16 20:13] VITALS: BP 120/78
[2021-06-16] MEDS: ATORVASTATIN 10 MG TABLET PO SCH (22:14)
[2021-06-16] MEDS: DOCUSATE SODIUM 100 MG CAPSULE PO SCH (22:15)
[2021-06-16] MEDS: LATANOPROST EYE DROP 0.005% 2.5 ML BOTTLE EACHEYE SCH (22:15)
[2021-06-17 08:00] VITALS: BP 142/79
[2021-06-17] MEDS: ENSURE ENLIVE CHOC 237 ML CAN PO SCH ×2 (08:25→16:29)
[2021-06-17] MEDS: DIVALPROEX SODIUM 500 MG TABLET.DR PO SCH ×2 (08:26→21:42)
[2021-06-17] MEDS: OLANZAPINE 10 MG TABLET PO SCH ×2 (08:26→21:43)
[2021-06-17] MEDS: LISINOPRIL (5MG) 5 MG TABLET PO SCH (08:26)
[2021-06-17 16:00] VITALS: BP 146/89
--- NOTE | 2021-06-17 19:16 | NUR ---
gps motor vehicle assembly supervisor opening notes: received pt awake in bed, calm. no c/o pain at this time. on room air. breathing even and unlabored. no acute distress noted. pt has no needs at this time. all safety measures in place. will continue q15 min monitoring with the help of staff to maintain safety.
[2021-06-17 20:00] VITALS: BP 117/84
[2021-06-17] MEDS: DOCUSATE SODIUM 100 MG CAPSULE PO SCH (21:43)
[2021-06-17] MEDS: ATORVASTATIN 10 MG TABLET PO SCH (21:43)
[2021-06-17] MEDS: LATANOPROST EYE DROP 0.005% 2.5 ML BOTTLE EACHEYE SCH (22:19)
--- NOTE | 2021-06-18 07:51 | NUR ---
SW Discharge Note: Patient will be discharged to a locked long term facility to [facility] [address] [place] [address]; ([phone]). Please arrange ambulance transportation. Rules Examiner spoke with Fabi, Outdoor Emergency Care Technician at [facility]; ([phone]), who stated patient will be accepted at facility today. Patient is alert and oriented x1, and is not able to plan for self-care at this time, but is willing to accept care provided for her at the facility. Patient denies any suicidal or homicidal ideations. Patients brother Soren ([phone]) is aware and agreeable with dc. Patient will continue to follow-up with her Psychiatrist [place]. [place] [address] [place] [address]; ([phone]) and (Derrick Operator) Dr. Massey [address] [facility] [address], [place] [address]; ([phone]). Patient presents with euthymic mood and congruent affect.
[2021-06-18 08:00] VITALS: BP 144/89
[2021-06-18] MEDS: OLANZAPINE 10 MG TABLET PO SCH (08:05)
[2021-06-18] MEDS: DIVALPROEX SODIUM 500 MG TABLET.DR PO SCH (08:05)
[2021-06-18 08:06] VITALS: BP 144/89
[2021-06-18] MEDS: LISINOPRIL (5MG) 5 MG TABLET PO SCH (08:06)
[2021-06-18] MEDS: ENSURE ENLIVE CHOC 237 ML CAN PO SCH (08:08)
--- NOTE | 2021-06-18 09:21 | NUR ---
Kam Ely NP of Dr. Horta gave an order to D/C hold and D/C to [facility] and to follow up with psych and medical doctors. Kam WHYTE reconciled meds to continue in the facility. Dr. Massey made aware of the discharge and reconciled the meds. Pt. without distress denies suicidal and homicidal. Belongings ready and discharge papers ready. Addendum: 06/18/21 at 1328 by RUTH LIZ RN Pictures taken for the skin issues.
--- NOTE | 2021-06-18 12:02 | NUR ---
Report given to Anel JENKINS over the facility
--- NOTE | 2021-06-18 13:25 | NUR ---
Pt. left the unit via ambulance and transported via a gurney with belongings. Left the unit without distress and no agitation. V/S taken:L BP 155/81, OK 81, RR 18, temp 98.2 and oxygen sat 97%.
== END 2021-06-18 13:25 | DRG 885 ==
LOC: ER 17:31 → GPS 21:15
PROVIDERS: ADMIT Psychiatry & Neurology Psychosomatic Medicine; ATTEND Internal Medicine
DX: F25.0 Schizoaffective disorder, bipolar type (principal); F23 Brief psychotic disorder; F03.90 Unspecified dementia, unspecified severity, without behavioral disturbance, psychotic disturbance, mood disturbance, and anxiety; E87.6 Hypokalemia; E78.5 Hyperlipidemia, unspecified; F41.9 Anxiety disorder, unspecified; I10 Essential (primary) hypertension; Z79.899 Other long term (current) drug therapy; Z73.6 Limitation of activities due to disability; R53.1 Weakness; R27.8 Other lack of coordination; Z91.81 History of falling; F32.A Depression, unspecified
CPT/HCPCS: 36415; 80048-TC; 80061-TC; 80164-TC; 81001; 82962-TC; 85025-TC; 97116-TC; 97530-TC; C9803; G0480

== ENCOUNTER 2022-05-14 17:51 | Inpatient (IN) | payer MEDICARE, OTHER ==
[~2022-05-14] VITALS: Ht 154.9 cm; Wt 50.9 kg
[~2022-05-14 17:51] MED LIST changes: +CLON0.1T PO; -DIVA500T54 PO; +DOCU-141 PO; +LISI-768 PO; +NETA2.5D3 OP; -OLAN15TA3 PO; -TEMA15CA PO
--- NOTE | 2022-05-14 18:25 | NUR ---
Pt for medical clearance then roddy psych admission. On 6098
--- NOTE | 2022-05-14 18:41 | NUR ---
urine sample obtained
[2022-05-14 18:57] LABS: CALCIUM, SERUM 8.8 mg/dL (8.5-10.1); CARBON DIOXIDE 30 mmol/L (21-32); CHLORIDE 102 mmol/L (98-107); CREATININE 0.9 mg/dL (0.6-1.3); GLUCOSE 121 mg/dL (74-106); SODIUM SERUM 138 mmol/L (136-145); UREA NITROGEN, BLOOD 9 mg/dL (7-18)
[2022-05-14 19:04] LABS: ALANINE AMINOTRANSFERASE 17 U/L (12-78); ALBUMIN 3.5 g/dL (3.4-5.0); ALCOHOL, BLOOD < 3 mg/dL (0-0); ALKALINE PHOSPHATASE 91 U/L (46-116); ASPARTATE AMINOTRANSFERASE 23 U/L (15-37); BILIRUBIN,DIRECT 0.1 mg/dL (0.0-0.2); BILIRUBIN,TOTAL 0.3 mg/dL (0.2-1.0); TOTAL PROTEIN, SERUM 7.4 g/dL (6.4-8.2)
[2022-05-14 19:04] LABS: BILIRUBIN,URINE NEGATIVE (NEGATIVE); COLOR,URINE YELLOW (YELLOW); LEUKOCYTE ESTERASE ,URINE NEGATIVE (NEGATIVE); NITRITE, URINE NEGATIVE (NEGATIVE); PROTEIN,URINE NEGATIVE (NEGATIVE); UGLUCOSE NEGATIVE (NEGATIVE); UROBILINOGEN,URINE 0.2 EU/dL (0.2)
--- NOTE | 2022-05-14 19:12 | NUR ---
COVID SWAB TAKEN
[2022-05-14] MEDS: POTASSIUM CL. PREMIX PERIPHER. 50 ML IV SCH ×4 (19:38→22:40)
--- NOTE | 2022-05-14 19:38 | NUR ---
20G IV STARTED AT [facility]
[2022-05-14 19:53] LABS: BASOPHILS % (AUTO) 0.6 % (0.0-2.0); EOSINOPHILS % (AUTO) 0.6 % (0.0-6.0); HEMATOCRIT 41 % (33-45); HEMOGLOBIN 13.2 g/dL (11.5-14.8); LYMPHOCYTES # (AUTO) 1.7 K/uL (0.8-4.8); LYMPHOCYTES % (AUTO) 22.4 % (20.0-44.0); MEAN CORPUSCULAR HGB CONC 33 g/dl (31.0-36.0); MEAN CORPUSCULAR VOLUME 91 fL (82-100); MONOCYTES # (AUTO) 0.6 K/uL (0.1-1.30); MONOCYTES % (AUTO) 7.4 % (2.0-12.0); NEUTROPHILS # (AUTO) 5.3 K/uL (1.8-8.9); PLATELET COUNT (AUTO) 405 K/uL (150-450); RED BLOOD CELL COUNT(AUTO) 4.48 MIL/uL (4.0-5.2); WHITE BLOOD COUNT (AUTO) 7.6 K/uL (4.3-11.0)
--- NOTE | 2022-05-15 00:15 | NUR ---
PT GOING TO 219
[2022-05-15] MEDS: ATORVASTATIN 10 MG TABLET PO SCH ×2 (00:43→21:16)
--- NOTE | 2022-05-15 00:45 | NUR ---
GPS ADMISSION NOTE, RECEIVED PATIENT FROM HOME / [facility] PATIENT ARRIVED ON THIS UNIT AT 0045 VIA STRETCHER WITH 2 ONLINE MARKETING STRATEGIST ESCORTS. PATIENT ADMITTED ON A 5150 HOLD FOR DTO. PER HOLD PATIENT WAS BROUGHT IN TO [facility] DUE TO THIS PATIENT HAVING INCREASED CONFUSION AND AGITATION. PATIENT HAS BEEN AGGRESSIVE TOWARDS FAMILY, HAS NOT BEEN TAKING HER MEDICATION PRESCRIBED, AND HAS BEEN YELLING AT PEOPLE TO GET AWAY FROM HER HOME FOR NO REASON. PATIENT WAS NOT ABLE TO CONTRACT FOR SAFETY AT THAT TIME. THE 5150 WAS REVIEWED AND THE DOCUMENTATION IN THE 5150 HOLD APPEARS TO REFLECT THE PRESENTATION OF THE PATIENT. UPON FACE TO FACE ASSESSMENT PATIENT IS NOTED TO BEING CONFUSED, DISHEVELED, DISORGANIZED, ANXIOUS, UNCOOPERATIVE, AND NEEDS REDIRECTION. PATIENT IS CURRENTLY LYING IN BED AWAKE, HAS NO S/S OR COMPLAINTS OF PAIN. PATIENT IS DISPLAYING NO S/S OF APPARENT DISTRESS. PATIENT BREATHING IS UNLABORED WITH EQUAL RISE AND FALL OF THE CHEST. PATIENT IS ALERT AND ORIENTATED X 1 ON ROOM AIR. PATIENT ASSISTED WITH TURING AND REPOSITIONING Q2HR AND PRN FOR COMFORT AND CIRCULATION. PATIENT HAS NO NEEDS AT THIS TIME. PATIENT DENIES SUICIDE IDEATIONS AND HOMICIDAL IDEATIONS AT THIS TIME. PATIENT REFUSED TO SIGNS ANY PAPER WORK AND THINKS THIS IS ALL A MISTAKE. PATIENT ADVISED OF HER HOLD AND PATIENT RIGHTS BOOKLET GIVEN. PATIENT IS UNDER THE PSYCHIATRIC CARE OF DR. LOERA AND THE MEDICAL CARE OF DR PISANO. PATIENT BELONGINGS WERE INVENTORIED AND CHECKED FOR CONTRABAND. ALL CONTRABAND REMOVED AND STORED IN PATIENT HALLWAY LOCKER. PATIENT ADVANCED DIRECTIVES PREFERENCE, IMMUNIZATIONS QUESTIONER, NECESSARY PAPERWORK COMPLETED. PATIENT REFUSED SKIN ASSESSMENT. PATIENT ORIENTATED TO ROOM, FLOOR, AND STAFF WITH ALL QUESTIONS ANSWERED. PATIENT EDUCATED ON THE USE OF THE CALL ARIAS. PATIENT BED SIDE RAILS ARE UP X 2 FOR SAFETY. PATIENT BED IS LOCKED, LOW, AND I WILL CONTINUE TO MONITOR THIS PATIENT Q 15 MIN WITH THE HELP OF STAFF TO MAINTAIN SAFETY.
[2022-05-15] MEDS ORDERED: ACETAMINOPHEN 325 MG TABLET PO PRN (01:30)
[2022-05-15] MEDS ORDERED: LORAZEPAM 0.5 MG TABLET PO PRN (01:30)
[2022-05-15] MEDS ORDERED: MAGNESIUM HYDROXIDE 30 ML UDC PO PRN (01:30)
[2022-05-15] MEDS ORDERED: MAG HYDROX/AL HYDROX/SIMETH 30 ML UDC PO PRN (01:30)
[2022-05-15] MEDS ORDERED: BLOOD SUGAR DIAGNOSTIC 1 EACH STRIP IN ONE (01:45)
[2022-05-15 08:00] VITALS: BP 140/56
[2022-05-15] MEDS: LISINOPRIL (5MG) 5 MG TABLET PO SCH (09:36)
[2022-05-15] MEDS: DIVALPROEX SODIUM 250 MG TABLET.DR PO SCH ×2 (14:09→17:43)
[2022-05-15] MEDS: OLANZAPINE 5 MG TABLET PO SCH ×2 (14:09→17:43)
[2022-05-15 16:00] VITALS: BP 100/53
--- NOTE | 2022-05-15 20:05 | NUR ---
RN opening notes Pt is resting in bed comfortably. Pt is alert and orientedX1,confused and guarded. Pt is compliant with meds and plan of care. Pt speaks Telugu and able to make needs known. On room air. no SOB. No S/s of distress noted. Vs is stable. Reality orientation provided. Pt denies SI/HI at this time. Safety precaution is maintained all the time. Will continue to monitor safety and behavior Q 15 mins checks.
[2022-05-15 20:32] VITALS: BP 120/63
[2022-05-15] MEDS: DOCUSATE SODIUM 250 MG CAPSULE PO SCH (21:16)
[2022-05-15] MEDS: LATANOPROST EYE DROP 0.005% 2.5 ML BOTTLE OP SCH (21:16)
[2022-05-16 07:26] LABS: BASOPHILS # (AUTO) 0.1 K/uL (0.0-0.2); BASOPHILS % (AUTO) 0.8 % (0.0-2.0); EOSINOPHILS % (AUTO) 0.7 % (0.0-6.0); HEMATOCRIT 38 % (33-45); HEMOGLOBIN 12.5 g/dL (11.5-14.8); LYMPHOCYTES # (AUTO) 2.1 K/uL (0.8-4.8); LYMPHOCYTES % (AUTO) 28.3 % (20.0-44.0); MEAN CORPUSCULAR HGB CONC 33 g/dl (31.0-36.0); MEAN CORPUSCULAR VOLUME 91 fL (82-100); MONOCYTES # (AUTO) 0.5 K/uL (0.1-1.30); NEUTROPHILS # (AUTO) 4.7 K/uL (1.8-8.9); NEUTROPHILS % (AUTO) 63.2 % (43.0-81.0); PLATELET COUNT (AUTO) 344 K/uL (150-450); RED BLOOD CELL COUNT(AUTO) 4.21 MIL/uL (4.0-5.2); WHITE BLOOD COUNT (AUTO) 7.5 K/uL (4.3-11.0)
[2022-05-16 07:53] LABS: CALCIUM, SERUM 8.6 mg/dL (8.5-10.1); CREATININE 0.8 mg/dL (0.6-1.3); POTASSIUM 3.7 mmol/L (3.5-5.1)
[2022-05-16 08:00] VITALS: BP 116/59
[2022-05-16] MEDS: DIVALPROEX SODIUM 250 MG TABLET.DR PO SCH ×3 (09:08→16:00)
[2022-05-16] MEDS: OLANZAPINE 5 MG TABLET PO SCH ×3 (09:08→16:00)
[2022-05-16] MEDS: LISINOPRIL (5MG) 5 MG TABLET PO SCH (09:09)
--- NOTE | 2022-05-16 10:18 | NUR ---
RN-CO: PATIENT TOOK HER MEDICATIONS. SHE IS CALM, COOPERATIVE AND GUARDED. SHE NEEDS MINIMAL ASSISTANCE WITH ADL. I ENCOURAGED HER TO VENTILATE HER FEELINGS AND REORIENT HER TO DATE AND STAFF.
--- NOTE | 2022-05-16 10:30 | NUR ---
AYSHA Clinical Note: Pt placed on a 5150 hold for danger to others. Pt was aggressive at home and was not taking her medications. Pt currently resides at her brothers home located at [address] [place] [address]; ([phone]). AYSHA will contact pt's brother Soren ([phone]) to gather futher collateral.
--- NOTE | 2022-05-16 10:30 | NUR ---
AYSHA Initial Discharge Note: Pt currently resides at her brothers home located at [address] [place] [address]; ([phone]). AYSHA will contact pt's brother Soren ([phone]) to gather futher collateral. AYSHA will work with the MD, family, and pt to help coordinate appropriate discharge.
--- NOTE | 2022-05-16 10:31 | NUR ---
Treatment Plan: Pt refused to sign treatment plan and appeared to be aggressive.
--- NOTE | 2022-05-16 10:42 | NUR ---
AYSHA Family Contact: SW attempted to contact pt's brother Soren ([phone]) who stated that he does not want pt back home. He stated for this typewriter mechanic to send clinicals to [facility] or [place] as she has been there before.
[2022-05-16 16:00] VITALS: BP 146/83
[2022-05-16 19:50] VITALS: BP 105/55
[2022-05-16 20:36] VITALS: BP 105/55
[2022-05-16] MEDS: DOCUSATE SODIUM 250 MG CAPSULE PO SCH (21:34)
[2022-05-16] MEDS: LATANOPROST EYE DROP 0.005% 2.5 ML BOTTLE OP SCH (21:34)
[2022-05-16] MEDS: ATORVASTATIN 10 MG TABLET PO SCH (21:34)
--- NOTE | 2022-05-17 06:55 | NUR ---
PATIENT SLEPT WELL AT NIGHT, REDIRECTABLE AND MED COMPLAINT.
[2022-05-17 08:00] VITALS: BP 149/94
[2022-05-17] MEDS: DIVALPROEX SODIUM 250 MG TABLET.DR PO SCH ×3 (08:33→16:22)
[2022-05-17] MEDS: LISINOPRIL (5MG) 5 MG TABLET PO SCH (08:33)
[2022-05-17] MEDS: OLANZAPINE 5 MG TABLET PO SCH ×3 (08:33→16:22)
--- NOTE | 2022-05-17 08:39 | NUR ---
AYSHA SNF Referral: AYSHA sent clinicals to Caprice from [facility] ([phone]) for placement. AYSHA sent H & P, progress notes, and medication list.
--- NOTE | 2022-05-17 09:37 | NUR ---
SNF Contact: SW spoke with Caprice from [facility] ([phone]) who stated that pt is accepted.
[2022-05-17 16:00] VITALS: BP 103/59
--- NOTE | 2022-05-17 18:13 | NUR ---
RN-NOTES PATIENT ISOLATIVE IN THE ROOM,DESPITE ENCOURAGEMENT TO ATTEND GROUPS. PATIENT REFERS TO STAY IN THE ROOM INTERMITTENTLY SLEEPING IN BED WITH BREATHING EVEN AND NON LABORED EASILY AROUSED,A/O X1 GUARDED,NO ACUTE DISTRESS NOTED. COMPLIANT WITH MEDICATIONS,NEEDS MINIMAL ASSIST WITH ADL'S. ALL NEEDS ATTENDED AND ANTICIPATED. WILL CONT. MONITORING FOR SAFETY AND BEHAVIOR.WILL ENDORSE TO INCOMING NURSE FOR THE CONTINUITY OF CARE.
[2022-05-17 20:10] VITALS: BP 102/52
[2022-05-17 21:35] VITALS: BP 102/52
[2022-05-17] MEDS: ATORVASTATIN 10 MG TABLET PO SCH (21:38)
[2022-05-17] MEDS: DOCUSATE SODIUM 250 MG CAPSULE PO SCH (21:38)
[2022-05-17] MEDS: LATANOPROST EYE DROP 0.005% 2.5 ML BOTTLE OP SCH (21:39)
[2022-05-18 08:00] VITALS: BP 118/56
[2022-05-18] MEDS: OLANZAPINE 5 MG TABLET PO SCH ×3 (08:12→17:03)
[2022-05-18] MEDS: LISINOPRIL (5MG) 5 MG TABLET PO SCH (08:12)
[2022-05-18] MEDS: DIVALPROEX SODIUM 250 MG TABLET.DR PO SCH ×3 (08:12→17:03)
--- NOTE | 2022-05-18 14:46 | NUR ---
RN-CO: Patient is isolative and withdrawn, up for needs only. She is responding to internal stimuli and acting bizarre inside her room. I encouraged her to ventilate feelings and participate in groups but she refused.
[2022-05-18 16:00] VITALS: BP 128/67
[2022-05-18 19:53] VITALS: BP 139/78
[2022-05-18] MEDS: DOCUSATE SODIUM 250 MG CAPSULE PO SCH (21:19)
[2022-05-18] MEDS: LATANOPROST EYE DROP 0.005% 2.5 ML BOTTLE OP SCH (21:19)
[2022-05-18] MEDS: ATORVASTATIN 10 MG TABLET PO SCH (21:20)
[2022-05-19 07:08] LABS: BASOPHILS % (AUTO) 0.5 % (0.0-2.0); HEMATOCRIT 39 % (33-45); HEMOGLOBIN 12.8 g/dL (11.5-14.8); LYMPHOCYTES # (AUTO) 3.1 K/uL (0.8-4.8); LYMPHOCYTES % (AUTO) 43.8 % (20.0-44.0); MEAN CORPUSCULAR HGB CONC 33 g/dl (31.0-36.0); MEAN CORPUSCULAR VOLUME 90 fL (82-100); MONOCYTES # (AUTO) 0.6 K/uL (0.1-1.30); MONOCYTES % (AUTO) 8.9 % (2.0-12.0); NEUTROPHILS # (AUTO) 3.3 K/uL (1.8-8.9); NEUTROPHILS % (AUTO) 45.8 % (43.0-81.0); PLATELET COUNT (AUTO) 360 K/uL (150-450); RED BLOOD CELL COUNT(AUTO) 4.28 MIL/uL (4.0-5.2); WHITE BLOOD COUNT (AUTO) 7.2 K/uL (4.3-11.0)
[2022-05-19 07:30] LABS: ALBUMIN 3.1 g/dL (3.4-5.0); BILIRUBIN,TOTAL 0.3 mg/dL (0.2-1.0); CALCIUM, SERUM 8.9 mg/dL (8.5-10.1); CREATININE 0.8 mg/dL (0.6-1.3); POTASSIUM 4.1 mmol/L (3.5-5.1); TOTAL PROTEIN, SERUM 7.2 g/dL (6.4-8.2)
[2022-05-19 08:00] VITALS: BP 148/82
[2022-05-19] MEDS: DIVALPROEX SODIUM 250 MG TABLET.DR PO SCH ×3 (08:16→16:11)
[2022-05-19] MEDS: OLANZAPINE 5 MG TABLET PO SCH ×4 (08:16→16:10)
[2022-05-19] MEDS: LISINOPRIL (5MG) 5 MG TABLET PO SCH (08:16)
--- NOTE | 2022-05-19 09:50 | NUR ---
RN Notes: Received pt. asleep in bed, breathing is even and unlabored. Ate 100% for breakfast and compliant on meds. Pt.talks to self and laughing to self. Encouraged to verbalize feelings and motivated to attend group activity. Needs attended and will continue to monitor for safety.
--- NOTE | 2022-05-19 11:00 | NUR ---
Court Hearing: Patient's court hearing for 7460 was today and it was upheld for GD.
--- NOTE | 2022-05-19 11:00 | NUR ---
Court Notification: SW attempted to contact pt's brother Soren ([phone]) to notify of 2020 hearing.
[2022-05-19 16:00] VITALS: BP 107/65
--- NOTE | 2022-05-19 19:30 | NUR ---
GPS RN NOTE, RECEIVED PATIENT AWAKE AND IN BED, NO S/S OR COMPLAINTS OF PAIN AT THIS TIME. PATIENT IS DISPLAYING NO S/S OF APPARENT DISTRESS AT THIS TIME. PATIENT BREATHING IS UNLABORED WITH EQUAL RISE AND FALL OF THE CHEST. PATIENT IS ALERT AND ORIENTED X 1 ON ROOM AIR WITH A SPO2 98%. PATIENT IS [place] SPEAKING BUT UNDERSTANDS SOME [place]GI[place]. PATIENT IS COMPLIANT WITH MEDICATIONS, CALM, CONFUSED, POLITE, AND COOPERATIVE. PATIENT DENIES SUICIDAL AND HOMICIDAL IDEATIONS AT THIS TIME. PATIENT ASSISTED WITH TURNING AND REPOSITIONING Q2HR AND PRN FOR COMFORT AND CIRCULATION. PATIENT HAS NO NEEDS AT THIS TIME. PATIENT EDUCATED ON THE USE OF THE CALL ARIAS. PATIENT BED SIDE RAILS UP X 2 FOR SAFETY. PATIENT BED IS LOCKED AND LOW. WILL CONTINUE TO MONITOR THIS PATIENT Q15 MINUTES WITH THE HELP OF STAFF TO MAINTAIN SAFETY.
[2022-05-19 20:10] VITALS: BP 105/60
[2022-05-19] MEDS: OLANZAPINE 10 MG TABLET PO SCH ×3 (21:00→21:28)
[2022-05-19] MEDS: LATANOPROST EYE DROP 0.005% 2.5 ML BOTTLE OP SCH (21:26)
[2022-05-19] MEDS: ATORVASTATIN 10 MG TABLET PO SCH (21:26)
[2022-05-19] MEDS: DOCUSATE SODIUM 250 MG CAPSULE PO SCH (21:26)
[2022-05-20 08:00] VITALS: BP 131/75
[2022-05-20] MEDS: LISINOPRIL (5MG) 5 MG TABLET PO SCH (08:02)
[2022-05-20] MEDS: OLANZAPINE 5 MG TABLET PO SCH ×3 (08:02→16:13)
[2022-05-20] MEDS: DIVALPROEX SODIUM 250 MG TABLET.DR PO SCH ×3 (08:02→16:13)
[2022-05-20 16:00] VITALS: BP 127/74
--- NOTE | 2022-05-20 19:30 | NUR ---
GPS RN NOTE, RECEIVED PATIENT AWAKE AND IN BED, NO S/S OR COMPLAINTS OF PAIN AT THIS TIME. PATIENT IS DISPLAYING NO S/S OF APPARENT DISTRESS AT THIS TIME. PATIENT BREATHING IS UNLABORED WITH EQUAL RISE AND FALL OF THE CHEST. PATIENT IS ALERT AND ORIENTED X 1 ON ROOM AIR WITH A SPO2 96%. PATIENT IS ARABIC SPEAKING BUT UNDERSTANDS SOME [place] ISLANDER. PATIENT IS COMPLIANT WITH MEDICATIONS, CALM, CONFUSED, POLITE, AND COOPERATIVE. PATIENT DENIES SUICIDAL AND HOMICIDAL IDEATIONS AT THIS TIME. PATIENT ASSISTED WITH TURNING AND REPOSITIONING Q2HR AND PRN FOR COMFORT AND CIRCULATION. PATIENT HAS NO NEEDS AT THIS TIME. PATIENT EDUCATED ON THE USE OF THE CALL ARIAS. PATIENT BED SIDE RAILS UP X 2 FOR SAFETY. PATIENT BED IS LOCKED AND LOW. WILL CONTINUE TO MONITOR THIS PATIENT Q15 MINUTES WITH THE HELP OF STAFF TO MAINTAIN SAFETY.
[2022-05-20] MEDS: DOCUSATE SODIUM 250 MG CAPSULE PO SCH (21:23)
[2022-05-20] MEDS: OLANZAPINE 10 MG TABLET PO SCH (21:23)
[2022-05-20] MEDS: LATANOPROST EYE DROP 0.005% 2.5 ML BOTTLE OP SCH (21:23)
[2022-05-20] MEDS: ATORVASTATIN 10 MG TABLET PO SCH (21:23)
[2022-05-21 08:00] VITALS: BP 126/67
[2022-05-21] MEDS: LISINOPRIL (5MG) 5 MG TABLET PO SCH (08:11)
[2022-05-21] MEDS: DIVALPROEX SODIUM 250 MG TABLET.DR PO SCH ×3 (08:11→16:28)
[2022-05-21] MEDS: OLANZAPINE 5 MG TABLET PO SCH ×3 (08:11→16:28)
[2022-05-21 16:00] VITALS: BP 119/71
--- NOTE | 2022-05-21 18:38 | NUR ---
RN-NOTES PATIENT ISOLATIVE IN THE ROOM, PATIENT REFERS TO STAY IN THE ROOM INTERMITTENTLY SLEEPING IN BED WITH BREATHING EVEN AND NON LABORED EASILY AROUSED,A/O X1 GUARDED,NO ACUTE DISTRESS NOTED. COMPLIANT WITH MEDICATIONS,NEEDS MINIMAL ASSIST WITH ADL'S. ALL NEEDS ATTENDED AND ANTICIPATED. WILL CONT. MONITORING FOR SAFETY AND BEHAVIOR.WILL ENDORSE TO INCOMING NURSE FOR THE CONTINUITY OF CARE.
--- NOTE | 2022-05-21 19:30 | NUR ---
GPS RN NOTE, RECEIVED PATIENT AWAKE AND IN BED, NO S/S OR COMPLAINTS OF PAIN AT THIS TIME. PATIENT IS DISPLAYING NO S/S OF APPARENT DISTRESS AT THIS TIME. PATIENT BREATHING IS UNLABORED WITH EQUAL RISE AND FALL OF THE CHEST. PATIENT IS ALERT AND ORIENTED X 1 ON ROOM AIR WITH A SPO2 97%. PATIENT IS [place] SPEAKING BUT UNDERSTANDS SOME [place]. PATIENT IS COMPLIANT WITH MEDICATIONS, CALM, CONFUSED, POLITE, AND COOPERATIVE. PATIENT DENIES SUICIDAL AND HOMICIDAL IDEATIONS AT THIS TIME. PATIENT ASSISTED WITH TURNING AND REPOSITIONING Q2HR AND PRN FOR COMFORT AND CIRCULATION. PATIENT HAS NO NEEDS AT THIS TIME. PATIENT EDUCATED ON THE USE OF THE CALL ARIAS. PATIENT BED SIDE RAILS UP X 2 FOR SAFETY. PATIENT BED IS LOCKED AND LOW. WILL CONTINUE TO MONITOR THIS PATIENT Q15 MINUTES WITH THE HELP OF STAFF TO MAINTAIN SAFETY.
[2022-05-21 20:00] VITALS: BP 128/66
[2022-05-21] MEDS: OLANZAPINE 10 MG TABLET PO SCH (21:34)
[2022-05-21] MEDS: TEMAZEPAM 7.5 MG CAPSULE PO PRN (21:34)
[2022-05-21] MEDS: LATANOPROST EYE DROP 0.005% 2.5 ML BOTTLE OP SCH (21:34)
[2022-05-21] MEDS: ATORVASTATIN 10 MG TABLET PO SCH (21:34)
[2022-05-21] MEDS: DOCUSATE SODIUM 250 MG CAPSULE PO SCH (21:34)
--- NOTE | 2022-05-21 21:35 | NUR ---
GPS RN NOTE, PATIENT HAS A COMPLAINT OF NOT BEING ABLE TO SLEEP AND IS REQUESTING RESTORIL AT THIS TIME. PATIENT VITAL SIGNS ARE STABLE. GAVE RESTORIL 7.5MG PO HS PRN ORDERED. WILL REASSESS FOR INSOMNIA AND I WILL CONTINUE TO MONITOR THIS PATIENT WITH THE HELP OF STAFF.
[2022-05-22 08:00] VITALS: BP 104/67
[2022-05-22] MEDS: OLANZAPINE 5 MG TABLET PO SCH ×3 (08:11→17:32)
[2022-05-22] MEDS: DIVALPROEX SODIUM 250 MG TABLET.DR PO SCH ×3 (08:11→17:31)
[2022-05-22] MEDS: LISINOPRIL (5MG) 5 MG TABLET PO SCH (08:12)
--- NOTE | 2022-05-22 13:09 | NUR ---
RN-CO: PATIENT IS COOPERATIVE TO CARE, RESPONDING TO INTERNAL STIMULI. DENIED PAIN AND DISCOMFORTS.WE WILL CONTINUE TO MONITOR.
[2022-05-22] MEDS: ENSURE ENLIVE 237 ML LIQUID (VANILLA) PO SCH ×2 (13:46→17:32)
[2022-05-22 16:00] VITALS: BP 117/83
[2022-05-22 20:32] VITALS: BP 140/75
[2022-05-22] MEDS: ATORVASTATIN 10 MG TABLET PO SCH (21:25)
[2022-05-22] MEDS: DOCUSATE SODIUM 250 MG CAPSULE PO SCH (21:25)
[2022-05-22] MEDS: LATANOPROST EYE DROP 0.005% 2.5 ML BOTTLE OP SCH (21:27)
[2022-05-22] MEDS: OLANZAPINE 10 MG TABLET PO SCH (21:47)
[2022-05-23 08:00] VITALS: BP 115/52
[2022-05-23] MEDS: DIVALPROEX SODIUM 250 MG TABLET.DR PO SCH ×3 (08:33→16:56)
[2022-05-23] MEDS: LISINOPRIL (5MG) 5 MG TABLET PO SCH (08:34)
[2022-05-23] MEDS: OLANZAPINE 5 MG TABLET PO SCH ×3 (08:34→16:56)
[2022-05-23] MEDS: ENSURE ENLIVE 237 ML LIQUID (VANILLA) PO SCH ×3 (08:34→16:57)
[2022-05-23 16:00] VITALS: BP 124/58
[2022-05-23 19:52] VITALS: BP 115/71
[2022-05-23] MEDS: ATORVASTATIN 10 MG TABLET PO SCH (21:20)
[2022-05-23] MEDS: DOCUSATE SODIUM 250 MG CAPSULE PO SCH (21:20)
[2022-05-23] MEDS: OLANZAPINE 10 MG TABLET PO SCH (21:20)
[2022-05-23] MEDS: LATANOPROST EYE DROP 0.005% 2.5 ML BOTTLE OP SCH (22:06)
[2022-05-24 08:00] VITALS: BP 100/74
[2022-05-24] MEDS: ENSURE ENLIVE 237 ML LIQUID (VANILLA) PO SCH ×3 (09:00→17:37)
[2022-05-24] MEDS: LISINOPRIL (5MG) 5 MG TABLET PO SCH (09:04)
[2022-05-24] MEDS: DIVALPROEX SODIUM 250 MG TABLET.DR PO SCH ×3 (09:04→17:37)
[2022-05-24] MEDS: OLANZAPINE 5 MG TABLET PO SCH ×3 (09:05→17:37)
[2022-05-24 16:00] VITALS: BP 118/60
[2022-05-24 20:43] VITALS: BP 104/57
[2022-05-24] MEDS: DOCUSATE SODIUM 250 MG CAPSULE PO SCH (21:34)
[2022-05-24] MEDS: OLANZAPINE 10 MG TABLET PO SCH (21:34)
[2022-05-24] MEDS: LATANOPROST EYE DROP 0.005% 2.5 ML BOTTLE OP SCH (21:34)
[2022-05-24] MEDS: ATORVASTATIN 10 MG TABLET PO SCH (21:34)
[2022-05-25 08:00] VITALS: BP 129/79
[2022-05-25] MEDS: OLANZAPINE 5 MG TABLET PO SCH ×3 (08:29→17:09)
[2022-05-25] MEDS: DIVALPROEX SODIUM 250 MG TABLET.DR PO SCH ×3 (08:29→17:08)
[2022-05-25] MEDS: LISINOPRIL (5MG) 5 MG TABLET PO SCH (08:30)
[2022-05-25] MEDS: ENSURE ENLIVE 237 ML LIQUID (VANILLA) PO SCH ×3 (08:47→17:09)
--- NOTE | 2022-05-25 13:24 | NUR ---
RN-CO: PATIENT IS AWAKE, DENIED PAIN AND DISCOMFORTS. CALM AND COOPERATIVE TO CARE. MUMBLES TO SELF, ISOLATIVE AND WITHDRAWN. SHE EATS 100% OF BREAKFAST AND LUNCH. SHE IS ALSO REDIRECTABLE. WE WILL CONTINUE TO MONITOR FOR SAFETY.
[2022-05-25 16:00] VITALS: BP 112/72
[2022-05-25 20:33] VITALS: BP 101/68
[2022-05-25] MEDS: OLANZAPINE 10 MG TABLET PO SCH (22:13)
[2022-05-25] MEDS: DOCUSATE SODIUM 250 MG CAPSULE PO SCH (22:13)
[2022-05-25] MEDS: LATANOPROST EYE DROP 0.005% 2.5 ML BOTTLE OP SCH (22:13)
[2022-05-25] MEDS: ATORVASTATIN 10 MG TABLET PO SCH (22:13)
[2022-05-25] MEDS: TEMAZEPAM 7.5 MG CAPSULE PO PRN (23:49)
--- NOTE | 2022-05-25 23:49 | NUR ---
NURSE NOTE: PT UNABLE TO SLEEP AT THIS TIME, REQUESTED MEDICATION TO HELP HER SLEEP. RESTORIL PO ADMINISTERED ORDERED. PT HOLLAND WELL. WILL CONT TO MONITOR.
[2022-05-26 07:17] LABS: ALBUMIN 2.8 g/dL (3.4-5.0); BILIRUBIN,TOTAL 0.2 mg/dL (0.2-1.0); CALCIUM, SERUM 8.5 mg/dL (8.5-10.1); CREATININE 0.8 mg/dL (0.6-1.3); POTASSIUM 3.9 mmol/L (3.5-5.1); TOTAL PROTEIN, SERUM 6.6 g/dL (6.4-8.2)
[2022-05-26 07:27] LABS: BASOPHILS % (AUTO) 0.5 % (0.0-2.0); EOSINOPHILS % (AUTO) 1.2 % (0.0-6.0); HEMATOCRIT 38 % (33-45); HEMOGLOBIN 12.1 g/dL (11.5-14.8); LYMPHOCYTES % (AUTO) 45.9 % (20.0-44.0); MEAN CORPUSCULAR HGB CONC 32 g/dl (31.0-36.0); MEAN CORPUSCULAR VOLUME 90 fL (82-100); MONOCYTES # (AUTO) 0.6 K/uL (0.1-1.30); MONOCYTES % (AUTO) 9.4 % (2.0-12.0); NEUTROPHILS # (AUTO) 2.8 K/uL (1.8-8.9); PLATELET COUNT (AUTO) 226 K/uL (150-450); RED BLOOD CELL COUNT(AUTO) 4.19 MIL/uL (4.0-5.2); WHITE BLOOD COUNT (AUTO) 6.5 K/uL (4.3-11.0)
[2022-05-26 08:00] VITALS: BP 106/65
[2022-05-26] MEDS: OLANZAPINE 5 MG TABLET PO SCH ×3 (08:11→16:48)
[2022-05-26] MEDS: DIVALPROEX SODIUM 250 MG TABLET.DR PO SCH ×3 (08:12→16:48)
[2022-05-26] MEDS: LISINOPRIL (5MG) 5 MG TABLET PO SCH (08:12)
[2022-05-26] MEDS: ENSURE ENLIVE 237 ML LIQUID (VANILLA) PO SCH ×3 (08:18→16:48)
--- NOTE | 2022-05-26 10:00 | NUR ---
RN Notes Received pt. asleep in bed, pleasant upon approached. Ate 100% for breakfast, compliant on meds. Pt. isolates in the room, encouraged to take shower and attend group activity. Needs attended and will continue to monitor for safety.
[2022-05-26 16:00] VITALS: BP 122/68
--- NOTE | 2022-05-26 19:50 | NUR ---
RN NOTES: RECEIVED PATIENT IN HIS ROOM RESTING IN BED COMFORTABLY. A/OX2. NO S/SX OF ACUTE DISTRESS NOTED. PATIENT IS CALM UPON APPROACH, COOPERATIVE TO CARE, GUARDED. DENIES SI/HI/AVH AT THIS TIME. VERBALIZATION OF FEELINGS ENCOURAGED. SAFETY PRECAUTIONS MAINTAINED. WILL CONTINUE TO MONITOR Q15MIN ROUNDS FOR SAFETY AND BEHAVIOR.
[2022-05-26 21:01] VITALS: BP 107/66
[2022-05-26] MEDS: ATORVASTATIN 10 MG TABLET PO SCH (21:27)
[2022-05-26] MEDS: OLANZAPINE 10 MG TABLET PO SCH (21:27)
[2022-05-26] MEDS: DOCUSATE SODIUM 250 MG CAPSULE PO SCH (21:27)
[2022-05-26] MEDS: LATANOPROST EYE DROP 0.005% 2.5 ML BOTTLE OP SCH (21:28)
[2022-05-27 08:00] VITALS: BP 109/65
--- NOTE | 2022-05-27 08:10 | NUR ---
SW Discharge Note: Patient will be discharged to a locked fpc facility to [facility] [address] [place] [address]; ([phone]). Please arrange ambulance transportation. Technical Sales Director spoke with Fabi, Manager Environmental Health And Safety at [facility]; ([phone]), who stated patient will be accepted at facility today. Patient is alert and oriented x1, and is not able to plan for self-care at this time, but is willing to accept care provided for her at the facility. Patient denies any suicidal or homicidal ideations. Patients brother Soren ([phone]) is aware and agreeable with dc. Patient will continue to follow-up with (psychiatrist) Dr. Lobato [address] [facility] [address], [place] [address]; ([phone]) and (Marketing Rep) Dr. Massey [address] [facility] [address], [place] [address]; ([phone]). Patient presents with euthymic mood and congruent affect.
[2022-05-27 08:12] VITALS: BP 109/65
[2022-05-27] MEDS: ENSURE ENLIVE 237 ML LIQUID (VANILLA) PO SCH (08:12)
[2022-05-27] MEDS: OLANZAPINE 5 MG TABLET PO SCH (08:12)
[2022-05-27] MEDS: LISINOPRIL (5MG) 5 MG TABLET PO SCH (08:12)
[2022-05-27] MEDS: DIVALPROEX SODIUM 250 MG TABLET.DR PO SCH (08:12)
--- NOTE | 2022-05-27 09:04 | NUR ---
RN- NOTES DR. LOBATO PUT IN AN ORDER TO D/C HOLD AND D/C TO [facility] AND TO FOLLOW UP WITH PSYCH AND MEDICAL DOCTORS. PSYCHIATRIST ORDERED TO CONTINUE SAME MEDICATIONS INCLUDING PRN. PATIENT WITHOUT DISTRESS, DENIES SUICIDAL AND HOMICIDAL IDEATION. DISCHARGE PAPERWORK AND BELONGINGS READY. Addendum: 05/27/22 at [address]Z RN [address] Lobato gave an order to d/c hold and d/c to [facility] and to follow up with psych and medical docotrs. Psychiatrist ordered to continue same meds including prn.
--- NOTE | 2022-05-27 10:41 | NUR ---
Lowell WHYTE made aware of the discharge and ordered to continue same meds including prn.
--- NOTE | 2022-05-27 11:56 | NUR ---
RN- NOTES REPORT GIVEN TO GREGORY SINGER, AT [facility].
--- NOTE | 2022-05-27 12:00 | NUR ---
Pt. signed the discharge papers and agreed to go to the facility and belongings ready.
--- NOTE | 2022-05-27 12:25 | NUR ---
RN- DISCHARGE NOTES PATIENT WAS DISCHARGED TO [facility] PER DOCTORS ORDERS VIA AMBULANCE AND GURNEY. VITAL SIGNS TAKEN, B/P 106/77, P 102, R 18, T 98.2, O2 SAT 97%. PATIENT TOOK ALL BELONGINGS AND PAPERWORK. PATIENT WAS WITHOUT DISTRESS, CALM, AND COOPERATIVE.
== END 2022-05-27 12:25 | DRG 885 ==
LOC: ER 19:46 → GPS 05-15 00:28
PROVIDERS: ADMIT Psychiatry & Neurology Psychosomatic Medicine; ATTEND Nurse Practitioner Acute Care
DX: F20.9 Schizophrenia, unspecified (principal); F03.93 Unspecified dementia, unspecified severity, with mood disturbance; F03.94 Unspecified dementia, unspecified severity, with anxiety; F03.92 Unspecified dementia, unspecified severity, with psychotic disturbance; G40.909 Epilepsy, unspecified, not intractable, without status epilepticus; I10 Essential (primary) hypertension; E78.00 Pure hypercholesterolemia, unspecified; Z79.899 Other long term (current) drug therapy; E87.6 Hypokalemia; Z73.6 Limitation of activities due to disability; R53.1 Weakness; R27.8 Other lack of coordination; Z91.81 History of falling; F32.A Depression, unspecified; E86.0 Dehydration; R79.89 Other specified abnormal findings of blood chemistry; E78.5 Hyperlipidemia, unspecified
CPT/HCPCS: 36415; 80048-TC; 80053-TC; 80061-TC; 80076-TC; 80164-TC; 85025-TC; 87081-TC; 97116-TC; 97530-TC; C9803; G0480; J3480; J7040